=== PATIENT | female | born 1940 | race Caucasian/White ===

== ENCOUNTER 2024-11-24 08:34 | Inpatient (IN) | payer MEDICARE, OTHER, SELFPAY ==
[2024-11-24] VITALS (10 sets, daily range): BP systolic 112–175; BP diastolic 69–83; PULSE 61–86; RESP 12–20; TEMP 36.7–37.2; O2SAT 84–97; BMI 27.9; BMI 27.4
--- NOTE | ~2024-11-24 | CT_ITS ---
EXAMINATION: CT HEAD WITHOUT CONTRAST CLINICAL INFORMATION: Fall with head strike. COMPARISON: None available. TECHNIQUE: Contiguous axial imaging was performed from the skull base to vertex without intravenous administration of contrast. This CT examination was performed using dose optimization techniques as appropriate, variously including the following: *Automated exposure control *Adjustment of mA and/or kV according to patient size (this includes techniques or standardized protocols for targeted exams where dose is matched to indication/reason for exam; i.e. extremities or head) *Use of iterative reconstruction technique FINDINGS: There is no evidence of intracranial hemorrhage or extra-axial fluid collection. There is no mass effect, or edema. No CT evidence of acute territorial infarct. Ventricles, sulci, and cisterns are normal in size and configuration for patient age. No hydrocephalus. No midline shift. Negative hyperdense MCA sign. Negative insular ribbon sign. Patchy periventricular and deep white matter hypoattenuation is consistent with mild small vessel ischemic changes. Partial empty sella. Mild atheromatous calcification of the bilateral carotid siphons and V4 segments vertebral arteries bilaterally. Globes and orbital contents image normally. No extracranial soft tissue abnormalities. The paranasal sinuses, mastoid air cells, and tympanic cavities are normally aerated. No suspicious bony abnormalities. There is hyperostosis frontalis. There are no acute fractures evident. CT/CT head/brain wo IV con IMPRESSION: No acute intracranial abnormality. No fracture evident. Electronically signed by: Sven Alva MD 11/24/2024 09:21 AM EDT
--- NOTE | ~2024-11-24 | XR_ITS ---
CLINICAL HISTORY: S p L hip maurice --- Additional Notes or Special Instructions: Posterior precautions Radiograph of the pelvis, single view Comparison: CR/SR - XR HIP 1 VIEW LEFT WITH PELVIS - 11/24/24 10:11 EDT Findings: Interval left total hip arthroplasty. Intact hardware. Anatomic alignment. No fracture or dislocation. Yfhf-ws-ddrypijn degenerative change. Soft tissue swelling and foci of air overlying the left hip secondary to recent surgery. Impression: Interval left total hip arthroplasty. Intact hardware. This document has been electronically signed by: Loren Valdez MD on 11/25/2024 14:22:21
--- NOTE | ~2024-11-24 | CT_ITS ---
EXAMINATION: CT CERVICAL SPINE WITHOUT CONTRAST CLINICAL INFORMATION: Fall, head strike, neck pain COMPARISON: None available. TECHNIQUE: Spiral CT imaging of the cervical spine performed in axial plane without contrast. Multiplanar reformatted images were constructed from the axial data set. This CT examination was performed using dose optimization techniques as appropriate, variously including the following: *Automated exposure control *Adjustment of mA and/or kV according to patient size (this includes techniques or standardized protocols for targeted exams where dose is matched to indication/reason for exam; i.e. extremities or head) *Use of iterative reconstruction technique FINDINGS: CORONAL ALIGNMENT: -Normal. SAGITTAL ALIGNMENT: -Normal. No subluxation. C1-C2 AND CRANIOCERVICAL JUNCTION: -Intact and normally aligned. Moderate degenerative arthrosis in the anterior atlantoaxial joint. VERTEBRAL BODIES AND FACETS: -No fracture, compression deformity, or suspicious bone lesion. No traumatic subluxation. -Normal facet alignment. Mild to moderate multilevel facet arthrosis bilaterally. DISCS: -Moderate diffuse disc degeneration, most significant at C3-4. CENTRAL CANAL: -No evidence of high-grade central canal narrowing or large disc herniation allowing for modality limitations. There is at least moderate central canal stenosis at C4-5 secondary to a dorsal disc osteophyte. PREVERTEBRAL AND PARAVERTEBRAL SOFT TISSUES: -No prevertebral or paravertebral soft tissue swelling or edema. No abnormal fluid collection. -Moderate bilateral carotid bulb calcifications. -Global enlargement of the thyroid gland with a dominant focal right-sided nodule measuring 2.0 x 2.1 cm (series 12, image 258). LUNG APICES: -Clear bilaterally. No pneumothorax. CT/CT cervical spine wo IV con IMPRESSION: 1. There is no CT evidence of acute cervical spine fracture or injury. 2. Moderate multilevel cervical spondylosis. 3. Global thyroid enlargement with a dominant 2.1 cm right-sided nodule. Electronically signed by: Sven Alva MD 11/24/2024 09:29 AM EDT
--- NOTE | ~2024-11-24 | XR_ITS ---
EXAMINATION: XR HIP, LEFT CLINICAL INFORMATION: L hip pain after fall COMPARISON: None available. TECHNIQUE: AP pelvis and 2 views left hip. FINDINGS: There is a fracture through the neck of the femur with proximal migration of the femur. There are mild degenerative changes of both hip joints with small marginal osteophytes involving the femoral head and acetabulum. XR/XR hip LT w PEL1V IMPRESSION: Acute left femoral neck fracture with proximal migration of the femur Electronically signed by: Guzman Kinney MD 11/24/2024 10:34 AM EDT
--- NOTE | ~2024-11-24 | XR_ITS ---
EXAMINATION: XR CHEST CLINICAL INFORMATION: hip fx COMPARISON: None available. TECHNIQUE: AP view of the chest was obtained. FINDINGS: The cardiac, hilar, and mediastinal contours are normal. Aortic mural calcifications. The lungs are clear bilaterally. No pneumothorax or effusion. No focal osseous or soft tissue abnormality. XR/XR chest 1V IMPRESSION: No active pulmonary disease. Electronically signed by: Sven Alva MD 11/24/2024 10:31 AM EDT
--- NOTE | 2024-11-24 08:36 | ECG_ITS ---
Test Reason : FALL Blood Pressure : */* mmHG Vent. Rate : 70 BPM Atrial Rate : 70 BPM P-R Int : 200 ms QRS Dur : 76 ms QT Int : 406 ms P-R-T Axes : 2 27 33 degrees QTcB Int : 438 ms Sinus rhythm with Premature atrial complexes Inferior infarct , age undetermined Abnormal ECG No previous ECGs available Referred By: Ruma Loaiza Electronically Signed By: YVETTE GUIDO
--- NOTE | 2024-11-24 08:52 | ED.GENADULT ---
HPI - General Adult General Chief complaint: Fall Stated complaint: ?FALL,-LOC,LT HIP PAIN PER EMS Time Seen by Provider: 11/24/24 08:36 Source: patient, family (daughter), EMS, RN notes reviewed and old records reviewed Mode of arrival: EMS History of Present Illness ED Provider: Josse HPI narrative: Patient is an 84-year-old female with history of Parkinson's, memory loss, HTN, insomnia, ATFL, TKA left knee presenting to the emergency department with complaint of left hip and upper leg pain after an unwitnessed fall at her assisted living facility prior to arrival. Patient does not recall the events of the fall. She is not anticoagulated. Denies headache, neck or back pain. Does not remember if she was dizzy or lightheaded prior to the fall. MD complaint: left hip pain Related Data Home Medications ?Medication ?Instructions ?Recorded ?Confirmed carbidopa 25 mg-levodopa 100 mg 1 tab PO TID 11/24/24 11/24/24 tablet escitalopram oxalate 20 mg tablet 20 mg PO DAILY 11/24/24 11/24/24 [id number] 0.4 mg-calcium 162 1 tab PO DAILY 11/24/24 11/24/24 mg-iron 18 [id number] tablet pravastatin 20 mg tablet 20 mg PO BEDTIME 11/24/24 11/24/24 Allergies Allergy/AdvReac Type Severity Reaction Status Date / Time No Known Allergies Allergy Verified 11/24/24 08:52 Review of Systems Review of Systems: As per HPI Yes all other systems are reviewed and are negative Constitutional: Constitutional: Reports as per HPI [facility] Past Medical History Medical History (Updated 11/24/24 @ 11:35 by AMBER Barrera) HLD (hyperlipidemia) Parkinsons disease Social History Social History Unable to assess alcohol history related to: Unknown Patient Tobacco Use Status: Never used Tobacco Physical Exam ED Vital Signs: Vital Signs - 24 hr 11/24/24 08:48 11/24/24 09:35 11/24/24 09:55 Temperature 98.6 F Pulse Rate 86 71 Respiratory Rate 16 14 Blood Pressure 128/75 175/78 H Pulse Oximetry 97 94 84 L Oxygen Delivery Method Room Air Room Air Room Air Oxygen Flow Rate 11/24/24 09:56 11/24/24 10:49 Temperature Pulse Rate 63 Respiratory Rate 12 15 Blood Pressure 151/83 H Pulse Oximetry 93 95 Oxygen Delivery Method Nasal Cannula Room Air Oxygen Flow Rate 3 BMI result Body Mass Index 27.9 Vital signs have been reviewed and appear to be correct. Blood pressure normal. Heart rate normal. Respiratory rate normal. Temperature normal. Oxygen saturation normal. Const General: cooperative, healthy appearing and no acute distress Orientation/consciousness: oriented to person and oriented to place [facility] Head: Yes normocephalic and Yes atraumatic Ears: external ears normal General nose exam: Normal external nose present Face and sinus: Yes face symmetric Mouth: oropharynx normal and moist mucous membranes Throat: Yes uvula midline Eyes Pupils: Equal, round and reactive pupils present Neck Neck: Yes normal visual inspection and Yes supple Resp Effort & Inspection: normal respiratory effort and able to speak in complete sentences Auscultation: clear to auscultation bilaterally Cardio Rate: regular rate Rhythm: regular rhythm Heart sounds: S1 normal heart sound present and S2 normal heart sound present GI Palpation (GI): Soft to palpation and nontender Auscultation: normoactive bowel sounds General: Yes no CVA tenderness Back/Spine/Pelvis Back: no CVA tenderness Cervical Spine: collar present, No Cervical spine tenderness and No step off deformity Thoracic/Lumbar Spine: thoracic and lumbar spine normal to inspection, No thoracic spinal tenderness and No lumbar spinal tenderness Pelvis: no pain with anterior-posterior compression and no pain with lateral compression Skin General skin exam: elasticity normal and turgor normal Neuro General: oriented to person, oriented to place, moves all extremities, no focal motor deficits and CN's II-XI intact bilaterally Cranial nerves: Yes Equal, round and reactive pupils present Cognition (Neuro): normal cognition Extrem General: Yes full ROM, Yes no pedal edema and Yes no calf tenderness Right lower extremity: normal to inspection, full ROM and foot Details: vascular exam Details: dorsalis pedis pulse present, posterior tibial pulse present and normal capillary refill Left lower extremity: hip/thigh Details: tenderness Location: of the proximal upper leg Location: laterally, knee Details: normal to inspection; no tenderness and foot Details: vascular exam Details: dorsalis pedis pulse present, posterior tibial pulse present and normal capillary refill; abnormal to inspection (shortened, externally rotated) Psych Mental Status: mental status grossly normal Affect: normal affect Thought process: Normal thought process present Medications Administered Discontinued Medications Generic Name Dose Route Start Last Admin Trade Name Freq PRN Reason Stop Dose Admin Diazepam 2.5 mg 11/24/24 09:44 11/24/24 09:49 Diazepam 10 Mg/2 Ml Cartridge IVPUSH 11/24/24 09:45 2.5 mg STAT STA Administration Acetaminophen 1,000 mg in 100 mls @ 400 mls/hr 11/24/24 12:39 11/24/24 14:02 Ofirmev IV 11/24/24 12:53 Infused ONCE ONE Infusion Morphine Sulfate 4 mg 11/24/24 09:16 11/24/24 09:22 Morphine Sulfate 4 Mg/Ml Cartridge IVPUSH 11/24/24 09:17 4 mg ONCE ONE Administration Protocol Morphine Sulfate 2 mg 11/24/24 11:22 11/24/24 11:51 Morphine Sulfate 4 Mg/Ml Cartridge IVPUSH 2 mg Q4H PRN Administration Pain, Severe (Pain Scale 7-10) Protocol Ondansetron HCl 4 mg 11/24/24 09:16 11/24/24 09:22 Ondansetron Hcl 4 Mg/2 Ml Vial IVPUSH 11/24/24 09:17 4 mg ONCE ONE Administration Medical Decision Making Medical Decision Making MDM Narrative: Patient is an 84-year-old female with history of Parkinson's, memory loss, HTN, insomnia, ATFL, TKA left knee presenting to the emergency department with complaint of left hip and upper leg pain after an unwitnessed fall at her assisted living facility prior to arrival. On exam patient is awake, A+Ox3, VS WNL, afebrile, normal neurological exam without focal deficits, physical exam findings as above. Given reported symptoms and physical exam findings, initial differential includes but is not limited to left hip/femur contusion versus fracture, ICH, skull or cervical vertebral fracture subluxation, cardiac arrhythmia, electrolyte abnormality, UTI, viral illness. Labs notable for leukocytosis with left shift, elevated T bili, no prior for comparison. Denies abdominal pain. X-ray left hip notable for femoral neck fracture. CT head and c-spine notable for no evidence of ICH, skull or cervical vertebral fracture or subluxation. My interpretation is in agreement with the radiologist's interpretation. Awaiting urine specimen, straight cath ordered. Viral serology negative. Patient medicated for pain with morphine, reports little relief. Will add valium. Case discussed with kam Monroe, who advised NPO after midnight, would like type and screen. Case discussed with AMBER Ward hospitalist who accepts admission to medicine. Differential Diagnosis Differential Diagnoses: The differential diagnosis associated with the presentation includes as per [facility] Admission/Observation Consideration of admission/observation: Escalation of care including admission/observation considered Consult Healthcare Provider Management of the patient was discussed with: Hospitalist (AMBER Maynard) and Battery Repairer (kam Monroe) Lab Data [facility] Lab Attestation statement: I reviewed the patient's lab results. as per [facility] 11/24/24 09:11 11/24/24 09:11 Labs: Lab Results 11/24/24 11/24/24 11/24/24 Range/Units 09:11 09:15 10:48 WBC 20.2 H (4.8-10.8) X10*3/uL RBC 4.46 (4.20-5.50) X10*6/uL Hgb 14.0 (12.0-16.0) g/dl Hct 39.7 (37.0-47.0) % MCV 89.0 (80.0-98.0) fL MCH 31.4 (27.0-33.0) pg MCHC 35.3 H (31.0-35.0) g/dl RDW 13.0 (11.0-16.0) % Plt Count 198 (160-400) X10*3/uL MPV 9.4 (9.4-12.3) fL Immature Gran % (Auto) 0.8 H (0.0-0.4) % Neut % (Auto) 91.1 H (45-73) % Lymph % (Auto) 3.0 L (20-40) % Greenlee % (Auto) 5.0 (2-11) % Eos % (Auto) 0.0 (0-4) % Baso % (Auto) 0.1 (0-2) % Lymph # (Auto) 0.6 L (1.2-4.9) X10*3/uL Greenlee # (Auto) 1.0 (0.1-1.2) X10*3/uL Eos # (Auto) 0.0 (0.0-0.4) X10*3/uL Baso # (Auto) 0.0 (0.0-0.2) X10*3/uL Abs Immat Gran (auto) 0.17 H (0.00-0.03) X10*3/uL Absolute Neuts (auto) 18.4 H (2.0-8.3) x10*3/uL Absolute Nucleated RBC 0.000 (0.0-0.012) X10*3/uL Nucleated RBC % (auto) 0.0 (0.0-0.2) /100WBC Smear Tech's Comments VERIFIED Sodium 139 (135-145) mmol/L Potassium 3.5 (3.3-5.1) mmol/L Chloride 106 (96-108) mmol/L Carbon Dioxide 25 (22-29) mmol/L Anion Gap 12 (12-20) BUN 21 H (9-16) mg/dL Creatinine 0.79 (0.5-1.4) mg/dL Estim Creat Clear Calc 54.0 Estimated GFR > 60 Random Glucose 120 H (60-115) mg/dL Calcium 9.2 (8.4-10.2) mg/dL Total Bilirubin 1.7 H (0.0-1.0) mg/dL AST 33 H (5-31) U/L ALT 20 (0-31) U/L Alkaline Phosphatase 58 (39-117) U/L Total Protein 6.4 L (6.5-8.0) g/dL Albumin 4.3 (3.5-5.0) g/dL Urine Color Dark Yellow Urine Appearance Clear Urine pH 5.5 (5.0-9.0) Ur Specific [place] >= 1.030 H (1.005-1.025) Urine Protein 30 (1+) H (Neg-Trace) mg/dL Urine Glucose (UA) Negative (Negative) mg/dL Urine Ketones 40 (Negative) mg/dL Urine Blood Trace H (Negative) Urine Nitrite Negative (Negative) Ur Leukocyte Esterase Trace H (Negative) Urine RBC 3-5 H (0-2) /HPF Urine WBC 0-5 (0-5) /HPF Ur Squamous Epith Cells 0-2 (0-2) /HPF Urine Bacteria None Seen (None Seen) Hyaline Casts 11-20 (0-2) /LPF Granular Casts Present COVID-19 (SUNITA) Negative (Negative) COVID-19 Clin Com See Note Influenza Type A (KENDRA) Negative (Negative) Influenza Type B (KENDRA) Negative (Negative) Influenza A & B Note See Note Independent Interpretation I performed an independent interpretation of an: EKG (sinus rhythm with PACs, rate 70bpm, normal PA interval and QTc, T wave inversion leads V1-V3), Plain X-Ray and CT Scan Interpretation: X-ray left hip notable for femoral neck fracture. CT head and c-spine notable for no evidence of ICH, skull or cervical vertebral fracture or subluxation. Radiology Impression Discussion of test interpretation with radiology: I have reviewed the radiologist's reading. Radiologist Impression: XR/XR hip LT w PEL1V IMPRESSION: Acute left femoral neck fracture with proximal migration of the femur CT/CT head/brain wo IV con IMPRESSION: No acute intracranial abnormality. No fracture evident. CT/CT cervical spine wo IV con IMPRESSION: 1. There is no CT evidence of acute cervical spine fracture or injury. 2. Moderate multilevel cervical spondylosis. 3. Global thyroid enlargement with a dominant 2.1 cm right-sided nodule. External Record Review External record reviewed: Inpatient record, Office record and Outpatient record Critical Care Time Critical Care Time Critical Care Time: Yes Total Critical Care Time: 37 Attestation: I have personally provided critical care time exclusive of time spent on separately billable procedures. Time includes review of lab data, radiology results, discussion with consultants, and monitoring for potential decompensation. Intervention performed as documented. Discharge Plan Discharge Clinical Impression: Closed fracture of neck of left femur Qualifiers: Encounter type: initial encounter Qualified Code(s): S72.002A - Fracture of unspecified part of neck of left femur, initial encounter for closed fracture Patient Disposition: Admitted As Inpatient Interventions: Admission Worksheet (ED) Last Done: 11/24/24 13:55 Discharge Date/Time: 11/24/24 15:12
[2024-11-24 09:19] LABS: Hematocrit 39.7 % (37.0-47.0); Hemoglobin 14.0 g/dl (12.0-16.0); Imm Gran Abs Auto 0.17 X10*3/uL (0.00-0.03); Imm Gran Pct Auto 0.8 % (0.0-0.4); Lymphocytes Absolute Auto 0.6 X10*3/uL (1.2-4.9); MANUAL DIFF FLAG SCAN; Mean Corpuscular HGB Conc 35.3 g/dl (31.0-35.0); Mean Corpuscular Hemoglobin 31.4 pg (27.0-33.0); Mean Corpuscular Volume 89.0 fL (80.0-98.0); NRBC Abs Auto 0.000 X10*3/uL (0.0-0.012); NRBC Pct Auto 0.0 /100WBC (0.0-0.2); Platelet Count 198 X10*3/uL (160-400); Red Blood Count 4.46 X10*6/uL (4.20-5.50); SCAN SMEAR FLAG 1; White Blood Count 20.2 X10*3/uL (4.8-10.8)
[2024-11-24 09:37] LABS: Alanine Aminotransferase 20 U/L (0-31); Albumin Level 4.3 g/dL (3.5-5.0); Alkaline Phosphatase 58 U/L (39-117); Anion Gap 12 (12-20); Aspartate Amino Transferase 33 U/L (5-31); Blood Urea Nitrogen 21 mg/dL (9-16); Calcium 9.2 mg/dL (8.4-10.2); Carbon Dioxide 25 mmol/L (22-29); Chloride 106 mmol/L (96-108); Creatinine Clr Calc Pharmacy 54.0; Estimated Glomerular Filt Rate > 60; Potassium 3.5 mmol/L (3.3-5.1); Sodium 139 mmol/L (135-145); Total Protein 6.4 g/dL (6.5-8.0)
--- NOTE | 2024-11-24 09:37 | PC.NURSE ---
Addendum entered by Humaira Freed RN 11/24/24 09:43: C-Collar removed by provider. Original Note: Pt [facility]NM[facility] from [facility], reported to have fallen in shower. Unknown if head strike, pt is alert/oriented but forgetful and poor historian. Pt states she suffers short term memory loss at baseline and ? Parkinson/dementia per EMS reports. C-Collar in placer per EMS, CT scans pending. #18 to L AC, labs collected and sent. Pt reports 11/15 pain to LLE, medicated per MAY. Pt pending xrays..
--- OUTSIDE RECORDS SUMMARY | 2024-11-24 09:44 | XMS_ITS | Clinical Summary ---
Author Organization [facility] Address [address] [place] [id number] Care Team Providers Care Remittance Clerk Name Role Phone Pancho Richards MD Primary Care Provider [phone] Allergies No known active allergies Medications pravastatin (PRAVACHOL) 20 MG tablet TAKE 1 TABLET BY MOUTH AT BEDTIME FOR 90 DAYS 4 Active escitalopram (LEXAPRO) 20 MG tablet Take 1 tablet (20 mg total) by mouth daily. 4 Active carbidopa-levodopa (SINEMET) 25-100 MG per tabletIndications:P arkinson's disease without dyskinesia or fluctuating manifestations (HCC) Take 1 tablet by mouth 3 (three) times a day. 270 tablet 3 5 Active Active Problems Problem Noted Date Diagnosed Date Memory loss 07/19/2023 07/19/2023 High blood pressure 04/08/2023 07/19/2023 Cervical radiculopathy 03/03/2022 4 Parkinson disease 03/08/2017 07/19/2023 Overview (07/19/2023): Diagnosed 2017 Encounters Date Type Department Care Team Description 09/26/2024 Scanned Document [facility] [place] [address] [place] [id number] Donald Li MD 08/28/2024 Refill [facility] [address] [place] [address] Donald Li MD Parkinson's disease without dyskinesia or fluctuating manifestations (HCC) (Primary Dx) from Last 3 Months Family History Medical History Relation Name Comments Diabetes Brother Heart attack Father Jj Coronel Heart disease Father Jj Coronel Parkinsonism Maternal Grandmother Madhuri Dos Santos Heart attack Mother Jodi Coronel Heart disease Mother Jodi Coronel Dementia Paternal Aunt 1 Gianna Dillard Dementia Paternal Aunt 2 Amaris Coronel Breast cancer Sister Edel Walker Anxiety disorder Son Guilherme Nina since alex ge years, currently 49 Relation Name Status Comments Brother Father Jj Coronel Maternal Grandmother Madhuri Dos Santos Mother Jodi Coronel Paternal Aunt 1 Gianna Dillard Paternal Aunt 2 Amaris Coronel Sister Edel Ugaldeven Son Guilherme Nina Social History Tobacco Use Types Packs/Day Years Used Date Smoking Tobacco: Never Smokeless Tobacco: Never Tobacco Cessation:Counseling Given: Not Answered Comments:Former smoker (stopped in 1984) Alcohol Use Standard Drinks/Week Comments Not Currently 1 (1 standard drink = 0.6 oz pur e alcohol) Comments Unknown Sex and Gender Information Value Date Recorded Sex Assigned at Female 07/18/2023 7:08 PM EDT Legal Sex Female 9:54 AM EDT Gender Identity Female 07/18/2023 7:08 PM EDT Sexual Orientation Heterosexual (straight) 07/17 7:08 PM EDT Last Filed Vital Signs Vital Sign Reading Time Taken Comments Blood Pressure - - Pulse - - Temperature - - Respiratory Rate - - Oxygen Saturation 96% 11/29/2023 12:47 PM EDT Inhaled Oxygen Concentration - - Weight 73.2 kg (161 lb 6.4 oz) 11/29/2023 12:47 PM EDT Height 167.6 cm (5' 6 ) 11/29/2023 12:47 PM EDT Body Mass Index 26.05 11/29/2023 12:47 PM EDT Plan of Treatment Upcoming Encounters Date Type Department Care Team (Late st Contact Info) Description 01/15/2025 1:00 PM EST Office Visit [facility] [address] [address] Donald Li MD [address] [facility] [address] [place] [address] Health Maintenance Due Date Last Done Comments Advance Care Planning 1942 DTaP/Tdap/Td Vaccines (1 - Tdap) 1961 Pneumococcal Vaccines 50+ (1 of 1 - PCV) 1992 Zoster (Shingles) Vaccine (1 of 2) 1992 DXA Bone Density (Females,Ages 65 and older) 06/07/2007 RSV Vaccine 60 years and older and Patients (1 - 1-dose 75+ series) 2017 Influenza Vaccine 10/06/2024 12/29/2022, , 11/23/2019, Additional history exists COVID-19 Vaccine ( season) 2024 07/14/2021, 12/20/2020, 04/27/2020, Additional history exists Hepatitis B Vaccines Aged Out No long er eligible based on patient's age to complete this topic Insurance MEDICARE PART A & B [facility] Care Teams Remittance Clerk Relationship Specialty Start Date End Date Pancho Richards MD [address] [place] [address] PCP - General 07/01/23
--- OUTSIDE RECORDS SUMMARY | 2024-11-24 09:44 | XMS_ITS ---
Author Name [facility] Organization Unknown History of Medication Use Medication Directions Dispensed Refills Start Date End Date Stat us carbidopa-levodopa (SINEMET) 25-100 MG per tablet Take 1 tablet by mouth 3 (three) times a day. 05/15/2023 active escitalopram (LEXAPRO) 20 MG tablet Take 1 tablet (20 mg total) by mouth daily. 05/07/2023 active Problems Problem Status Onset Date Problem Type Date of Resoluti on Source Cervical radiculopathy active 2022-03-03 [facility] Memory loss active 2023-07-19 [facility] High blood pressure active 2023-04-08 [facility] Parkinson disease active 2017-03-08 ProblemAct [facility] Encounters Encounter Type Encounter Reason Primary Diagnosis Location Date Ambulatory Parkinson's disease without dyskinesia, without mention of fluctuations Parkinson's disease without dyskinesia, without mention of fluctuations [facility] 11/29/2023 Ambulatory Parkinson's disease without dyskinesia, without mention of fluctuations Parkinson's disease without dyskinesia, without mention of fluctuations [facility] 07/19/2023 Care Team Organization Name Specialty Phone Email Start Date End Da te [facility] 07/19/20232024 [facility] 07/01/2023
--- OUTSIDE RECORDS SUMMARY | 2024-11-24 09:44 | XMS_ITS | Encounter Summary ---
Author Organization [facility] Address [address] [place] [address] Care Team Providers Care Sales Administration Specialist Name Role Phone Pancho Richards Primary Care Provider [phone] Reason for Visit * Reason Onset Date Comments Confirmation 06/11/2021 Encounter Details Date Type Department Care Team (Late st Contact Info) Description 06/11/2021 Telephone [facility] Central Scheduling Department [address] [place] [id number] Telephone Intake, Staff Confirmation Social History Tobacco Use Types Packs/Day Years Used Date Smoking Tobacco: Former Smokeless Tobacco: Former Alcohol Use Standard Drinks/Week Comments Yes 1 (1 standard drink = 0.6 oz pur e alcohol) Comments Unknown Sex and Gender Information Value Date Recorded Sex Assigned at Not on file Legal Sex Female 10:38 AM EST Gender Identity Not on file Sexual Orientation Not on file documented as of this encounter Miscellaneous Notes * Telephone Encounter - Danelle Pardo - 06/11/2021 2:58 PM EDT Neurology pt confirming 06/30 and 09/[address] Ally Mccarty documented in this encounter Plan of Treatment Not on file documented as of this encounter Visit Diagnoses Not on filedocumented in this encounter Care Teams Sales Administration Specialist Relationship Specialty Start Date End Date Pancho Richards [facility] [facility], [place] [address] PCP - General Internal Medicine 04/19/19 documented as of this encounter
--- OUTSIDE RECORDS SUMMARY | 2024-11-24 09:44 | XMS_ITS | Encounter Summary ---
Author Organization [facility] Address [address] [place] [address] Care Team Providers Care Admiralty Lawyer Name Role Phone Pancho Richards MD Primary Care Provider [phone] Encounter Details Date Type Department Care Team (Late st Contact Info) Description 09/26/2024 Scanned Document [facility] [place] [address] [place] [phone] Donald Li MD [address] [address] Social History Tobacco Use Types Packs/Day Years Used Date Smoking Tobacco: Never Smokeless Tobacco: Never Comments:Former smoker (stop ped in 1984) Alcohol Use Standard Drinks/Week Comments Not Currently 1 (1 standard drink = 0.6 oz pur e alcohol) Comments Unknown Sex and Gender Information Value Date Recorded Sex Assigned at Female 07/18/2023 7:08 PM EDT Legal Sex Female 9:54 AM EDT Gender Identity Female 07/18/2023 7:08 PM EDT Sexual Orientation Heterosexual (straight) 07/17 7:08 PM EDT documented as of this encounter Plan of Treatment Upcoming Encounters Date Type Department Care Team (Late st Contact Info) Description 01/15/2025 1:00 PM EST Office Visit [facility] [place] [address] [place] [phone] Donald Li MD [address] [address] documented as of this encounter Visit Diagnoses Not on filedocumented in this encounter Care Teams Admiralty Lawyer Relationship Specialty Start Date End Date Pancho Richards MD [address] [place] [address] PCP - General 07/01/23 documented as of this encounter
--- OUTSIDE RECORDS SUMMARY | 2024-11-24 09:44 | XMS_ITS | Clinical Summary ---
Author Organization [facility] Address [address] [place] [address] Care Team Providers Care Instrument And Electrical Technician Name Role Phone Pancho Richards Primary Care Provider [phone] Allergies No known active allergies Medications pravastatin (PRAVACHOL) 20 mg tablet 08/06/2019 Active sertraline (ZOLOFT) 25 mg tablet Take 25 mg by mouth daily. 12/24/2019 Active amoxicillin (AMOXIL) 500 mg capsule TAKE 4 CAPSULES BY MOUTH 1 HR PRIOR DENTAL APPT 12/12/2019 Active carbidopa-levod opa (SINEMET) 25-100 mg per tablet TAKE 2 TABLETS BY MOUTH 3 TIMES A DAY 540 tablet 1 08/26/2022 Active Active Problems Problem Noted Date Diagnosed Date Parkinson disease 08/07/2019 Overview (08/07/2019): Diagnosed 2017 Social History Tobacco Use Types Packs/Day Years Used Date Smoking Tobacco: Former Smokeless Tobacco: Former Alcohol Use Standard Drinks/Week Comments Yes 1 (1 standard drink = 0.6 oz pur e alcohol) Comments Unknown Sex and Gender Information Value Date Recorded Sex Assigned at Not on file Legal Sex Female 10:38 AM EST Gender Identity Not on file Sexual Orientation Not on file Last Filed Vital Signs Vital Sign Reading Time Taken Comments Blood Pressure 135/82 09/29/2021 9:20 AM EDT Pulse 79 09/29/2021 9:20 AM EDT Temperature 36.3 C (97.4 F) 09/29/2021 9:17 AM EDT Respiratory Rate 16 09/29/2021 9:17 AM EDT Oxygen Saturation - - Inhaled Oxygen Concentration - - Weight 81.2 kg (179 lb) 12/09/2020 9:07 AM EDT Height 167.6 cm (5' 6 ) 09/29/2021 9:17 AM EDT Body Mass Index 28.89 12/09/2020 9:07 AM EDT Plan of Treatment Health Maintenance Due Date Last Done Comments Osteoporosis Screening 1992 RSV Vaccine (60+ years old and patients) (1 - 1-dose 75+ series) 2017 DTaP,Tdap,and Td Vaccines (2 - Td or Tdap) 03/07/2023 03/07/2013, 12/06/2012, 11/15/2006, Additional history exists Alcohol/Substance Use Screening 03/08/2024 Health Care Proxy Review 03/08/2024 COVID-19 Vaccine ( season) 2024 07/14/2021, 12/20/2020, 04/27/2020, Additional history exists Influenza Vaccine (#1) 2024 , 12/11/2020, 11/23/2019, Additional history exists Pneumococcal Vaccine: 50+ Years Completed 12/24/2015, 07/02/2011 Zoster Vaccines Completed 03/21/2018, 01/06, 10/20/2012 Hepatitis B Vaccines Aged Out No long er eligible based on patient's age to complete this topic Insurance [facility] [employer] [id number] MEDICARE Care Teams Instrument And Electrical Technician Relationship Specialty Start Date End Date Pancho Richards [address] [place] [address], [place] [address] PCP - General Internal Medicine 04/19/19
--- OUTSIDE RECORDS SUMMARY | 2024-11-24 09:44 | XMS_ITS | Encounter Summary ---
Author Organization [facility] Address [address] [place] [address] Care Team Providers Care Patent Searcher Name Role Phone Pancho Richards MD Primary Care Provider [phone] Encounter Details Date Type Department Care Team (Late Contact Info) Description 12/20/2023 Scanned Document [facility] Neuropsychology, Scan Social History Tobacco Use Types Packs/Day Years [...] Encounters Date Type Department Care Team (Late Contact Info) Description 01/15/2025 1:00 PM EST Office Visit [facility] [place] [address] [place] [id number] Donald Li MD [address] [id number] documented as of this encounter Visit Diagnoses Not on filedocumented in this encounter Care Teams Patent Searcher Relationship Specialty Start Date End Date Pancho Richards MD [address] [place] [address] PCP - General 07/01/23 documented as of this encounter
[2024-11-24] MEDS: diazePAM 10 MG/2 ML CARTRIDGE 2.5 MG IVPUSH (09:49)
[2024-11-24 09:54] LABS: COVID-19 Test Negative (Negative); IDNOW Serial# 55D5AD1C; IDNOW Serial# 6674DD1D; Influenza B2 Negative (Negative)
--- NOTE | 2024-11-24 09:56 | PC.NURSE ---
Pt medicated per MAR, reports pain has improved. O2 sat noted to be 84% on room air. 3L O2 applied via NC, saturation improved to 97%. Pt resting quietly with eyes closed and resp even and unlabored. Pt now in xray.
--- NOTE | 2024-11-24 10:56 | PC.NURSE ---
U/A obtained via straight cath, pt tolerated well. Approx 150cc of CYU noted for output
[2024-11-24 11:00] LABS: Appearance Urine Clear; Glucose Urine UA Negative (Negative); PH 5.5 (5.0-9.0); Specific Gravity - Urine >= 1.030 (1.005-1.025); UMIC TRIGGER UACC YES
--- NOTE | 2024-11-24 11:28 | P.HPHOSP_ITS ---
History of Present Illness Date of Service: 11/24/24 Attending physician on admission: Jing Hernandez Chief Complaint: left leg pain, fall This is an 84-year-old female with a history of Parkinson's disease was brought to the emergency department after a fall. Patient has a history of memory impairment and can not remember exactly why she fell. She was brought to the emergency department and reported left leg pain. Imaging was positive for left femoral neck fracture. Lab work was significant for leukocytosis of 20,000, chest x-ray negative for acute infection. Urinalysis pending at the time of admission. Patient denies any urinary symptoms. She denies any chest pain, shortness of breath, palpitations or dizziness. She will be admitted for further management of left femoral neck fracture Review of Systems 2 Review of Systems: Yes all other systems are reviewed and are negative Constitutional: Constitutional: Denies chills and Denies fever(s) Cardiovascular: Cardiovascular: Denies chest pain and Denies palpitations Gastrointestinal: Gastrointestinal: Denies diarrhea and Denies vomiting Endocrine: Endocrine: Denies palpitations [facility] Medical History (Updated 11/24/24 @ 11:35 by AMBER Barrera) HLD (hyperlipidemia) Parkinsons disease Social History Unable to assess alcohol history related to: Unknown Patient Tobacco Use Status: Never used Tobacco Advance Directives: No Advance Directives Information Provided: Yes Meds Allergies Allergy/AdvReac Type Severity Reaction Status Date / Time No Known Allergies Allergy Verified 11/24/24 08:52 Home Medications ?Medication ?Instructions ?Recorded ?Confirmed ?Last Taken ?Type carbidopa 25 mg-levodopa 100 mg 1 tab PO TID 11/24/24 11/24/24 11/23/24 History tablet escitalopram oxalate 20 mg tablet 20 mg PO DAILY 11/2411/24/24 11/23/24 History escitalopram oxalate 20 mg tablet 20 mg PO DAILY 11/2411/24/24 11/23/24 History utbkzknr-mso-ZH 0.4 mg-calcium 162 1 tab PO DAILY 11/0611/24/24 11/23/24 History mg-iron 18 zd-wxmciod-sjpmol tablet Physical Exam 2 Vital Signs and Narrative: Vital Signs: Last Vital Signs Temp 98.6 F 11/24/24 08:48 Pulse 63 11/24/24 10:49 Resp 15 11/24/24 10:49 BP 151/83 H 11/24/24 10:49 Pulse Ox 95 11/24/24 10:49 O2 Del Method Room Air 11/24/24 10:49 O2 Flow Rate 3 11/24/24 09:56 BMI result Body Mass Index 27.9 Const: General: cooperative, comfortable, alert and awake Nutritional Appearance: average body habitus Orientation/consciousness: oriented to person and oriented to place Resp: Effort & Inspection: normal respiratory effort, able to speak in complete sentences, no respiratory distress and no use of accessory muscles Cardio: Rate: regular rate GI: Inspection: No distended Palpation (GI): Soft to palpation Neuro: General: oriented to person, oriented to place, moves all extremities and CN's II-XI intact bilaterally Extrem: General: No pedal edema Results Labs 11/24/24 09:11 11/24/24 09:11 Labs: Laboratory Results - last 24 hr 11/24/24 11/24/24 11/24/24 09:11 09:15 10:48 MCV 89.0 MCH 31.4 MCHC 35.3 H RDW 13.0 Plt Count 198 MPV 9.4 Immature Gran % (Auto) 0.8 H Neut % (Auto) 91.1 H Lymph % (Auto) 3.0 L [place] % (Auto) 5.0 Eos % (Auto) 0.0 Baso % (Auto) 0.1 Lymph # (Auto) 0.6 L [place] # (Auto) 1.0 Eos # (Auto) 0.0 Baso # (Auto) 0.0 Abs Immat Gran (auto) 0.17 H Absolute Neuts (auto) 18.4 H Absolute Nucleated RBC 0.000 Nucleated RBC % (auto) 0.0 Smear Tech's Comments VERIFIED Anion Gap 12 Estim Creat Clear Calc 54.0 Estimated GFR > 60 Random Glucose 120 H Calcium 9.2 Total Bilirubin 1.7 H AST 33 H ALT 20 Alkaline Phosphatase 58 Total Protein 6.4 L Albumin 4.3 Urine Color Dark Yellow Urine Appearance Clear Urine pH 5.5 Ur Specific [place] >= 1.030 H Urine Protein 30 (1+) H Urine Glucose (UA) Negative Urine Ketones 40 Urine Blood Trace H Urine Nitrite Negative Ur Leukocyte Esterase Trace H Urine RBC 3-5 H Urine WBC 0-5 Ur Squamous Epith Cells 0-2 Urine Bacteria None Seen Hyaline Casts 11-20 Granular Casts Present COVID-19 (SUNITA) Negative COVID-19 Clin Com See Note Influenza Type A (KENDRA) Negative Influenza Type B (KENDRA) Negative Influenza A & B Note See Note Imaging Radiologist's Impressions: Impressions Cervical Spine CT 11/24/24 08:53 IMPRESSION: 1. There is no CT evidence of acute cervical spine fracture or injury. 2. Moderate multilevel cervical spondylosis. 3. Global thyroid enlargement with a dominant 2.1 cm right-sided nodule. Electronically signed by: Sven Alva MD 11/24/2024 09:29 AM EDT RP Head CT 11/24/24 08:53 IMPRESSION: No acute intracranial abnormality. No fracture evident. Electronically signed by: Sven Alva MD 11/24/2024 09:21 AM EDT RP Hip/Pelvis X-Ray 11/24/24 10:11 IMPRESSION: Acute left femoral neck fracture with proximal migration of the femur Electronically signed by: Guzman Kinney MD 11/24/2024 10:34 AM EDT RP Chest X-Ray 11/24/24 10:19 IMPRESSION: No active pulmonary disease. Electronically signed by: Sven Alva MD 11/24/2024 10:31 AM EDT RP Assessment and Plan (1) Closed fracture of neck of left femur: Qualifiers: Encounter type: initial encounter Qualified Code(s): S72.002A - Fracture of unspecified part of neck of left femur, initial encounter for closed fracture Status: Acute Plan This is an 84-year-old female with a history of Parkinson's disease, memory impairment, hypertension no longer on medication, hyperlipidemia brought into the emergency department after a fall found to have left femoral neck fracture Left femoral neck fracture Consult to Orthopedic team for definitive management No history of cardiopulmonary disease. RCRI - low risk of major cardiac event NSQIP risk: NPO at midnight pain management bowel regimen to prevent constipation check troponin, tsh leukocytosis wbc count 20.2 cxr, UA negative; no obvious source of infection likely reactive from fall trend cbc elevated bilirubin no abdominal pain parkinson's dz continue sinemet when med rec complete HTN no longer on bp meds reportedly stopped to prevent hypotension in the setting of parkinsons with what sounds like possible autonomic dysfunction Mood continue SSRI dvt ppx - mechanical devices due to planned procedure Patient will likely require 2 midnight stay in the hospital for management of left femoral neck fracture requiring surgical intervention, pain management Quality Stroke Does the patient have a stroke diagnosis?: No VTE Prior VTE?: No VTE Risk Level:: Medical - moderate - high VTE Device Contraindication: N/A - Device Ordered VTE Drug Contraindication: Treatment Not Indicated
--- NOTE | 2024-11-24 12:28 | HO.NURTONUR ---
Addendum entered by Humaira Freed RN 11/24/24 14:01: Pt given IV APAP x 1, reports improvment of pain. Addendum entered by Humaira Freed RN 11/24/24 13:04: Pt now regular diet, plans to be NPO after midnight for surgery at 730 jojo morning. Original Note: Pt is a 84yo female full code with NKA who was BIBA from [facility] after falling in shower. Unsure of head strike, pt denies LOC. LLE shortening noted and pt reports 10/10 pain. XRay shows left femoral neck fx, CT head and spine negative. Ortho consulted, plans for surgery tomorrow. PMH- dementia and parkinsons Pt is A/O x 2-3. Forgetful at times, easily redirectable. #18 to LAC Pt given morphine IV for pain, pt reprorts inadequate pain relief and PA notified. Currently NPO Continent of bowel and bladder.
--- NOTE | 2024-11-24 12:28 | PHA.MEDREC ---
Pharmacy Consult ? Medication Reconciliation Pharmacy has completed the medication reconciliation. Spoke with pt sister at bedside to confirm medications, these match claims.
--- NOTE | 2024-11-24 12:59 | PM.CNOR ---
History of Present Illness HPI Consult date: 11/24/24 Chief complaint: left femoral neck fracture Narrative: Patient is an 84-year-old female with past medical history significant for memory loss, Parkinson's, hypertension who was admitted to the hospital after a fall and left femoral neck fracture Patient is unable to give a detailed history about the nature of her fall, is only able to report that she did fall this morning Patient is resting in bed, does report significant pain in the left hip Denies any history of cigarette smoking, no cancer history, no history of blood clots No other acute complaints or concerns at this time Review of Systems Review of Systems: Yes all other systems are reviewed and are negative [facility] Past Medical History Medical History (Updated 11/24/24 @ 11:35 by AMBER Barrera) HLD (hyperlipidemia) Parkinsons disease Social History Social History Unable to assess alcohol history related to: Unknown Patient Tobacco Use Status: Never used Tobacco Advance Directives: No Advance Directives Information Provided: Yes Meds Allergies Allergy/AdvReac Type Severity Reaction Status Date / Time No Known Allergies Allergy Verified 11/24/24 08:52 Active Medications: Current Medications Acetaminophen (Acetaminophen 325 Mg Tablet) 650 mg PO Q6H PRN PRN Reason: Pain, Mild 1-3,fever,headache Calcium Carbonate (Calcium Carbonate 750 Mg Tab.Chew) 750 mg PO Q4H PRN PRN Reason: Heartburn Carbidopa/Levodopa (Carbidopa/Levodopa 25/100 Tablet) 1 tab PO TID [facility] Docusate Sodium (Docusate Sodium 100 Mg Capsule) 100 mg PO BID [facility] Escitalopram Oxalate (Escitalopram Oxalate 20 Mg Tablet) 20 mg PO DAILY [facility] Magnesium Hydroxide (Milk Of Magnesia 30 Ml Oral.Susp) 30 ml PO DAILY PRN PRN Reason: Constipation Melatonin (Melatonin 3 Mg Tablet) 6 mg PO BEDTIME PRN PRN Reason: Insomnia Morphine Sulfate (Morphine Sulfate 4 Mg/Ml Cartridge) 4 mg IVPUSH Q4H PRN; Protocol PRN Reason: Pain, Severe (Pain Scale 7-10) Polyethylene Glycol (Polyethylene Glycol 3350 17 Gm Powd.Pack) 17 gm PO DAILY PRN PRN Reason: Constipation Sodium Chloride (0.9 % Sodium Chloride Flush 3 Ml Syringe) 3 ml IVFLUSH QSHIFT [facility] Home Medications ?Medication ?Instructions ?Recorded ?Confirmed ?Last Taken ?Type carbidopa 25 mg-levodopa 100 mg 1 tab PO TID 11/24/24 11/24/24 11/23/24 History tablet escitalopram oxalate 20 mg tablet 20 mg PO DAILY 11/24/24 11/24/24 11/23/24 History gwpymkfp-bxi-UH 0.4 mg-calcium 162 1 tab PO DAILY 11/24/24 11/24/24 11/23/24 History mg-iron 18 ba-uamxpkw-yjxfeq tablet pravastatin 20 mg tablet 20 mg PO BEDTIME 11/24/24 11/24/24 11/23/24 History Physical Exam Vital Signs: Vital Signs: Last Vital Signs Temp 98.6 F 11/24/24 08:48 Pulse 63 11/24/24 10:49 Resp 15 11/24/24 10:49 BP 151/83 H 11/24/24 10:49 Pulse Ox 95 11/24/24 10:49 O2 Del Method Room Air 11/24/24 10:49 O2 Flow Rate 3 11/24/24 09:56 BMI result Body Mass Index 27.9 Extrem: Other: There is noted to be slight shortening and external rotation of the left lower extremity on inspection No evidence of surrounding erythema, ecchymosis No evidence of infection Patient is able to flex and extend the digits of the left foot without difficulty Compartments soft, nontender Distal sensation intact Capillary refill brisk Results Labs 11/24/24 09:11 11/24/24 09:11 Labs: Abnormal lab results 11/24/24 11/24/24 Range/Units 09:11 10:48 WBC 20.2 H (4.8-10.8) X10*3/uL MCHC 35.3 H (31.0-35.0) g/dl Immature Gran % (Auto) 0.8 H (0.0-0.4) % Neut % (Auto) 91.1 H (45-73) % Lymph % (Auto) 3.0 L (20-40) % Lymph # (Auto) 0.6 L (1.2-4.9) X10*3/uL Abs Immat Gran (auto) 0.17 H (0.00-0.03) X10*3/uL Absolute Neuts (auto) 18.4 H (2.0-8.3) x10*3/uL BUN 21 H (9-16) mg/dL Random Glucose 120 H (60-115) mg/dL Total Bilirubin 1.7 H (0.0-1.0) mg/dL AST 33 H (5-31) U/L Total Protein 6.4 L (6.5-8.0) g/dL Ur Specific [place] >= 1.030 H (1.005-1.025) Urine Protein 30 (1+) H (Neg-Trace) mg/dL Urine Blood Trace H (Negative) Ur Leukocyte Esterase Trace H (Negative) Urine RBC 3-5 H (0-2) /HPF H & H 11/24/24 Range/Units 09:11 Hgb 14.0 (12.0-16.0) g/dl Hct 39.7 (37.0-47.0) % All other labs normal. Diagnostic results Hip x-ray: report reviewed and image reviewed Assessment and Plan (1) Closed fracture of neck of left femur: Qualifiers: Encounter type: initial encounter Qualified Code(s): S72.002A - Fracture of unspecified part of neck of left femur, initial encounter for closed fracture Status: Acute Plan 1. Left femoral neck fracture Date of injury 11/24/2024 The case was discussed with Dr. Santana, as well as the patient's healthcare proxy Fer Nina, and a collaborative treatment plan was formed: Based off of clinical exam findings and imaging the patient does likely have a left femoral neck fracture which would benefit from surgical intervention. The patient does understand nonsurgical intervention would result in having to be totally nonweightbearing on the left lower extremity for a minimum of 3 months, with the associated risks including but not limited to blood clots, pneumonia, bed sores, and significantly decreased mobility likely even when the fracture does heal. Given the patient's activity level and desire to continue remaining active, it would be recommended to pursue surgical intervention. We discussed the procedure in detail along with the risks, benefits, and alternatives. Risks including but not limited to infection, injury to surrounding nerves, soft tissue structures, and bone, small and large vessels, stiffness, fracture, DVT/PE, and the need for further surgery, along with intraoperative complications including but not limited to . We discussed postoperative recovery which includes weight-bearing as tolerated on the left lower extremity, physical therapy, anticoagulation for 6 weeks after surgery, and likely rehab placement upon discharge from the hospital. The patient expresses understanding of this and would like to proceed with left hip hemiarthroplasty. The patient will be booked accordingly. NPO at midnight for surgery tomorrow Patient will require medical clearance from the hospitalist team prior to surgical intervention Patient is added onto the operating room schedule for 730 a.m. on 11/25/2024 Nonweightbearing on left lower extremity until postoperatively Procedures Date of Service Date of Service: 11/24/24
[2024-11-24 13:22] LABS: Troponin-I High Sensitivity 38.8 ng/L (<3.5-17.0)
[2024-11-24] MEDS: 0.9 % Sodium Chloride Flush 3 ML SYRINGE IVFLUSH ×2 (16:08→20:32)
[2024-11-24 17:40] LABS: Troponin-I High Sensitivity 57.6 ng/L (<3.5-17.0)
--- NOTE | 2024-11-24 21:52 | ECG_ITS ---
Test Reason : cp Blood Pressure : */* mmHG Vent. Rate : 57 BPM Atrial Rate : 57 BPM P-R Int : 174 ms QRS Dur : 88 ms QT Int : 424 ms P-R-T Axes : 23 25 38 degrees QTcB Int : 412 ms Sinus bradycardia with marked sinus arrhythmia Otherwise normal ECG When compared with ECG of 24-Nov-2024 09:25, No significant changes seen Referred By: Jing Hernandez Electronically Signed By: YVETTE GUIDO
[2024-11-25] VITALS (11 sets, daily range): BP systolic 92–118; BP diastolic 52–67; PULSE 56–80; RESP 14–16; TEMP 36.1–37.2; O2SAT 93–98
--- NOTE | 2024-11-25 03:32 | PC.NURSE ---
2245 Dr. Saravia notified pt bladder scan 377 mL and had not voided since previous straight cath at 10am in the morning. Dr. Saravia advised to give pt more time to try and urinate. 0[address] Bladder scan [address] Saravia notified and order put in for straight cath. Pt was able to void 200 mL on bedpan. Straight cathed for 350mL and pt tolerated well. BS post-residual 120 mL.
--- NOTE | 2024-11-25 07:03 | P.CONAN_ITS ---
HPI - Anesthesia Eval Consult details Narrative: For left hemiarthroplasty PMFSH Active Problems Active Problems: All Active Problems Closed fracture of neck of left femur (Acute) Past Medical History Medical History HLD (hyperlipidemia) Parkinsons disease Family History Family history of problems with anesthesia: No Surgical History History of Problems with Anesthesia: No Social History Social History Household Members: Spouse Housing: [facility] Do you presently have visiting nurse or other home services: No Unable to assess alcohol history related to: Unknown Patient Tobacco Use Status: Former Tobacco user Meds Allergies Allergy/AdvReac Type Severity Reaction Status Date / Time No Known Allergies Allergy Verified 11/24/24 08:52 Active Medications: Current Medications Acetaminophen (Acetaminophen 325 Mg Tablet) 650 mg PO Q6H PRN PRN Reason: Pain, Mild 1-3,fever,headache Calcium Carbonate (Calcium Carbonate 750 Mg Tab.Chew) 750 mg PO Q4H PRN PRN Reason: Heartburn Carbidopa/Levodopa (Carbidopa/Levodopa 25/100 Tablet) 1 tab PO TID [facility] Last Admin: 11/24/24 20:31 Dose: 1 tab Docusate Sodium (Docusate Sodium 100 Mg Capsule) 100 mg PO BID [facility] Last Admin: 11/24/24 20:31 Dose: 100 mg Escitalopram Oxalate (Escitalopram Oxalate 20 Mg Tablet) 20 mg PO DAILY [facility] Magnesium Hydroxide (Milk Of Magnesia 30 Ml Oral.Susp) 30 ml PO DAILY PRN PRN Reason: Constipation Melatonin (Melatonin 3 Mg Tablet) 6 mg PO BEDTIME PRN PRN Reason: Insomnia Last Admin: 11/24/24 22:38 Dose: 6 mg Morphine Sulfate (Morphine Sulfate 4 Mg/Ml Cartridge) 4 mg IVPUSH Q4H PRN; Protocol PRN Reason: Pain, Severe (Pain Scale 7-10) Last Admin: 11/25/24 03:21 Dose: 4 mg Polyethylene Glycol (Polyethylene Glycol 3350 17 Gm Powd.Pack) 17 gm PO DAILY PRN PRN Reason: Constipation Sodium Chloride (0.9 % Sodium Chloride Flush 3 Ml Syringe) 3 ml IVFLUSH QSHIFT [facility] Last Admin: 11/24/24 20:32 Dose: 3 ml Home Medications ?Medication ?Instructions ?Recorded ?Confirmed ?Last Taken ?Type carbidopa 25 mg-levodopa 100 mg 1 tab PO TID 11/24/24 11/24/24 11/23/24 History tablet escitalopram oxalate 20 mg tablet 20 mg PO DAILY 11/2411/24/24 11/23/24 History [id number] 0.4 mg-calcium 162 1 tab PO DAILY 11/0611/24/24 11/23/24 History mg-iron 18 [id number]-[id number]-[id number] tablet pravastatin 20 mg tablet 20 mg PO BEDTIME 11/24/2411/23/24 History Exam Height,Weight and Vital Signs: Height 5 ft 4 in Weight 72.5 kg Last Vital Signs Temp 97.0 F 11/25/24 03:37 Pulse 56 11/25/24 03:37 Resp 14 11/25/24 03:37 BP 118/63 11/25/24 03:37 Pulse Ox 93 11/25/24 03:37 O2 Del Method Room Air 11/25/24 03:37 O2 Flow Rate 3 11/24/24 09:56 Pertinent Lab Results Pertinent Lab Results: Laboratory Tests 11/24/24 11/24/24 11/24/24 09:11 09:15 10:48 WBC 20.2 H RBC 4.46 Hgb 14.0 Hct 39.7 MCV 89.0 MCH 31.4 MCHC 35.3 H RDW 13.0 Plt Count 198 MPV 9.4 Immature Gran % (Auto) 0.8 H Neut % (Auto) 91.1 H Lymph % (Auto) 3.0 L [place] % (Auto) 5.0 Eos % (Auto) 0.0 Baso % (Auto) 0.1 Lymph # (Auto) 0.6 L [place] # (Auto) 1.0 Eos # (Auto) 0.0 Baso # (Auto) 0.0 Abs Immat Gran (auto) 0.17 H Absolute Neuts (auto) 18.4 H Absolute Nucleated RBC 0.000 Nucleated RBC % (auto) 0.0 Smear Tech's Comments VERIFIED Sodium 139 Potassium 3.5 Chloride 106 Carbon Dioxide 25 Anion Gap 12 BUN 21 H Creatinine 0.79 Estim Creat Clear Calc 54.0 Estimated GFR > 60 Random Glucose 120 H Calcium 9.2 Total Bilirubin 1.7 H AST 33 H ALT 20 Alkaline Phosphatase 58 Troponin I High Sens Total Protein 6.4 L Albumin 4.3 TSH Urine Color Dark Yellow Urine Appearance Clear Urine pH 5.5 Ur Specific [place] >= 1.030 H Urine Protein 30 (1+) H Urine Glucose (UA) Negative Urine Ketones 40 Urine Blood Trace H Urine Nitrite Negative Ur Leukocyte Esterase Trace H Urine RBC 3-5 H Urine WBC 0-5 Ur Squamous Epith Cells 0-2 Urine Bacteria None Seen Hyaline Casts 11-20 Granular Casts Present COVID-19 (SUNITA) Negative COVID-19 Clin Com See Note Influenza Type A (KENDRA) Negative Influenza Type B (KENDRA) Negative Influenza A & B Note See Note Blood Type Antibody Screen 11/24/24 11/24/24 11/24/24 12:04 12:49 16:57 WBC RBC Hgb Hct MCV MCH MCHC RDW Plt Count MPV Immature Gran % (Auto) Neut % (Auto) Lymph % (Auto) [place] % (Auto) Eos % (Auto) Baso % (Auto) Lymph # (Auto) [place] # (Auto) Eos # (Auto) Baso # (Auto) Abs Immat Gran (auto) Absolute Neuts (auto) Absolute Nucleated RBC Nucleated RBC % (auto) Smear Tech's Comments Sodium Potassium Chloride Carbon Dioxide Anion Gap BUN Creatinine Estim Creat Clear Calc Estimated GFR Random Glucose Calcium Total Bilirubin AST ALT Alkaline Phosphatase Troponin I High Sens 38.8 H 57.6 H* Total Protein Albumin TSH 0.59 Urine Color Urine Appearance Urine pH Ur Specific [place] Urine Protein Urine Glucose (UA) Urine Ketones Urine Blood Urine Nitrite Ur Leukocyte Esterase Urine RBC Urine WBC Ur Squamous Epith Cells Urine Bacteria Hyaline Casts Granular Casts COVID-19 (SUNITA) COVID-19 Clin Com Influenza Type A (KENDRA) Influenza Type B (KENDRA) Influenza A & B Note Blood Type O Positive Antibody Screen NEGATIVE Airway Mallampati Class: II TM Dist: <=3cm Neck ROM: Full Loose/Missing/Broken Teeth: No Heart: ok Lungs: ok Assessment and Plan Assessment Anesthesia Assessment: Anesthesia Plan Discussed and Chart Reviewed Final Anesthetic Review Family History of Problems with Anesthesia: No History of Problems with Anesthesia: No NPO: Yes ASA Class: IV Final Preanesthetic Review: No Changes in Pt Med Stat, Meds/Allgs Chart Reviewed, Consent Obtained/Reviewed and Anes Risks/Benef Reviewed Patient Risk: High Procedure Risk: Intermediate Anesthetic Plan Anesthetic Plan: Spinal and Agree w/ Assess. and Plan Disposition: Standard PACU
[2024-11-25 07:04] LABS: MANUAL DIFF FLAG NO
[2024-11-25 07:09] LABS: Hematocrit 37.6 % (37.0-47.0); Hemoglobin 12.7 g/dl (12.0-16.0); Imm Gran Abs Auto 0.07 X10*3/uL (0.00-0.03); Imm Gran Pct Auto 0.6 % (0.0-0.4); Lymphocytes Absolute Auto 1.2 X10*3/uL (1.2-4.9); Mean Corpuscular HGB Conc 33.8 g/dl (31.0-35.0); Mean Corpuscular Hemoglobin 30.8 pg (27.0-33.0); Mean Corpuscular Volume 91.3 fL (80.0-98.0); NRBC Abs Auto 0.000 X10*3/uL (0.0-0.012); NRBC Pct Auto 0.0 /100WBC (0.0-0.2); Platelet Count 171 X10*3/uL (160-400); Red Blood Count 4.12 X10*6/uL (4.20-5.50); White Blood Count 12.5 X10*3/uL (4.8-10.8)
[2024-11-25 07:24] LABS: Alanine Aminotransferase 8 U/L (0-31); Albumin Level 3.6 g/dL (3.5-5.0); Alkaline Phosphatase 53 U/L (39-117); Anion Gap 11 (12-20); Aspartate Amino Transferase 39 U/L (5-31); Blood Urea Nitrogen 21 mg/dL (9-16); Calcium 8.5 mg/dL (8.4-10.2); Carbon Dioxide 23 mmol/L (22-29); Chloride 108 mmol/L (96-108); Creatinine Clr Calc Pharmacy 58.7; Estimated Glomerular Filt Rate > 60; Potassium 3.7 mmol/L (3.3-5.1); Sodium 138 mmol/L (135-145); Total Protein 5.7 g/dL (6.5-8.0)
--- NOTE | 2024-11-25 07:25 | HO.PM.IMPN ---
Subjective Subjective Date of Service: 11/25/24 Interval History: s/p R hip ORIF Tele said she was in Mobitz Type I Will get labs and replete electrolytes, cont tele and escalate her to Tele Review of Systems Review of Systems: Yes all other systems are reviewed and are negative Physical Exam Exam: Exam: General: AOx0, somnolent post anesthesia Resp: CTA bilaterally CVS: S1, S2, Sinus bradycardia GI: +BS, NT, no distention Skin: Surgical site L hip - c/d/i Vital Signs: Vital Signs: Last Vital Signs Temp 97.0 F 11/25/24 03:37 Pulse 56 11/25/24 03:37 Resp 14 11/25/24 03:37 BP 118/63 11/25/24 03:37 Pulse Ox 93 11/25/24 03:37 O2 Del Method Room Air 11/25/24 03:37 O2 Flow Rate 3 11/24/24 09:56 BMI result Body Mass Index 27.4 Objective Data Active Medications Acetaminophen (Acetaminophen 325 Mg Tablet) 650 mg PO Q6H PRN PRN Reason: Pain, Mild 1-3,fever,headache Calcium Carbonate (Calcium Carbonate 750 Mg Tab.Chew) 750 mg PO Q4H PRN PRN Reason: Heartburn Carbidopa/Levodopa (Carbidopa/Levodopa 25/100 Tablet) 1 tab PO TID [facility] Last Admin: 11/24/24 20:31 Dose: 1 tab Documented By: NITHYA Docusate Sodium (Docusate Sodium 100 Mg Capsule) 100 mg PO BID [facility] Last Admin: 11/24/24 20:31 Dose: 100 mg Documented By: NITHYA Escitalopram Oxalate (Escitalopram Oxalate 20 Mg Tablet) 20 mg PO DAILY [facility] Magnesium Hydroxide (Milk Of Magnesia 30 Ml Oral.Susp) 30 ml PO DAILY PRN PRN Reason: Constipation Melatonin (Melatonin 3 Mg Tablet) 6 mg PO BEDTIME PRN PRN Reason: Insomnia Last Admin: 11/24/24 22:38 Dose: 6 mg Documented By: NITHYA Morphine Sulfate (Morphine Sulfate 4 Mg/Ml Cartridge) 4 mg IVPUSH Q4H PRN; Protocol PRN Reason: Pain, Severe (Pain Scale 7-10) Last Admin: 11/25/24 03:21 Dose: 4 mg Documented By: NITHYA Polyethylene Glycol (Polyethylene Glycol 3350 17 Gm Powd.Pack) 17 gm PO DAILY PRN PRN Reason: Constipation Sodium Chloride (0.9 % Sodium Chloride Flush 3 Ml Syringe) 3 ml IVFLUSH QSHIFT [facility] Last Admin: 11/24/24 20:32 Dose: 3 ml Documented By: NITHYA Labs 11/25/24 06:07 11/25/24 13:31 Labs: Laboratory Results - last 24 hr 11/24/24 11/24/24 11/24/24 09:11 09:15 10:48 MCV 89.0 MCH 31.4 MCHC 35.3 H RDW 13.0 Plt Count 198 MPV 9.4 Immature Gran % (Auto) 0.8 H Neut % (Auto) 91.1 H Lymph % (Auto) 3.0 L [place] % (Auto) 5.0 Eos % (Auto) 0.0 Baso % (Auto) 0.1 Lymph # (Auto) 0.6 L [place] # (Auto) 1.0 Eos # (Auto) 0.0 Baso # (Auto) 0.0 Abs Immat Gran (auto) 0.17 H Absolute Neuts (auto) 18.4 H Absolute Nucleated RBC 0.000 Nucleated RBC % (auto) 0.0 Smear Tech's Comments VERIFIED Anion Gap 12 Estim Creat Clear Calc 54.0 Estimated GFR > 60 Random Glucose 120 H Calcium 9.2 Total Bilirubin 1.7 H Direct Bilirubin AST 33 H ALT 20 Alkaline Phosphatase 58 Troponin I High Sens Total Protein 6.4 L Albumin 4.3 TSH Urine Color Dark Yellow Urine Appearance Clear Urine pH 5.5 Ur Specific [place] >= 1.030 H Urine Protein 30 (1+) H Urine Glucose (UA) Negative Urine Ketones 40 Urine Blood Trace H Urine Nitrite Negative Ur Leukocyte Esterase Trace H Urine RBC 3-5 H Urine WBC 0-5 Ur Squamous Epith Cells 0-2 Urine Bacteria None Seen Hyaline Casts 11-20 Granular Casts Present COVID-19 (SUNITA) Negative COVID-19 Clin Com See Note Influenza Type A (KENDRA) Negative Influenza Type B (KENDRA) Negative Influenza A & B Note See Note Blood Type Antibody Screen 11/24/24 11/24/24 11/24/24 12:04 12:49 16:57 MCV MCH MCHC RDW Plt Count MPV Immature Gran % (Auto) Neut % (Auto) Lymph % (Auto) [place] % (Auto) Eos % (Auto) Baso % (Auto) Lymph # (Auto) [place] # (Auto) Eos # (Auto) Baso # (Auto) Abs Immat Gran (auto) Absolute Neuts (auto) Absolute Nucleated RBC Nucleated RBC % (auto) Smear Tech's Comments Anion Gap Estim Creat Clear Calc Estimated GFR Random Glucose Calcium Total Bilirubin Direct Bilirubin AST ALT Alkaline Phosphatase Troponin I High Sens 38.8 H 57.6 H* Total Protein Albumin TSH 0.59 Urine Color Urine Appearance Urine pH Ur Specific [place] Urine Protein Urine Glucose (UA) Urine Ketones Urine Blood Urine Nitrite Ur Leukocyte Esterase Urine RBC Urine WBC Ur Squamous Epith Cells Urine Bacteria Hyaline Casts Granular Casts COVID-19 (SUNITA) COVID-19 Clin Com Influenza Type A (KENDRA) Influenza Type B (KENDRA) Influenza A & B Note Blood Type O Positive Antibody Screen NEGATIVE 11/25/24 06:07 MCV 91.3 MCH 30.8 MCHC 33.8 RDW 13.1 Plt Count 171 MPV 9.9 Immature Gran % (Auto) 0.6 H Neut % (Auto) 81.7 H Lymph % (Auto) 9.3 L [place] % (Auto) 6.3 Eos % (Auto) 1.6 Baso % (Auto) 0.5 Lymph # (Auto) 1.2 [place] # (Auto) 0.8 Eos # (Auto) 0.2 Baso # (Auto) 0.1 Abs Immat Gran (auto) 0.07 H Absolute Neuts (auto) 10.3 H Absolute Nucleated RBC 0.000 Nucleated RBC % (auto) 0.0 Smear Tech's Comments Anion Gap 11 L Estim Creat Clear Calc 58.7 Estimated GFR > 60 Random Glucose 95 Calcium 8.5 D Total Bilirubin 1.9 H Direct Bilirubin 0.6 H AST 39 H ALT 8 Alkaline Phosphatase 53 Troponin I High Sens Total Protein 5.7 L Albumin 3.6 TSH Urine Color Urine Appearance Urine pH Ur Specific [place] Urine Protein Urine Glucose (UA) Urine Ketones Urine Blood Urine Nitrite Ur Leukocyte Esterase Urine RBC Urine WBC Ur Squamous Epith Cells Urine Bacteria Hyaline Casts Granular Casts COVID-19 (SUNITA) COVID-19 Clin Com Influenza Type A (KENDRA) Influenza Type B (KENDRA) Influenza A & B Note Blood Type Antibody Screen Assessment and Plan (1) Closed fracture of neck of left femur: Status: Acute Plan pt is an 84 yo new to the hosp with PMH of known Parkinsons dementia,mobility and autonomic dysfunction who sustained a presumed mechanical fall 2/2 baseline medical and psych conditions and sustained a L femoral neck # s/p ORIF on 11/25/24 Possible mechanical fall in a pt with advanced parkinsons dx s/p ORIF on 11/25/24 Pain control with Tylenol, oxycodone, Dilaudid, Robaxin, lidocaine patch slowly resume clear liquid diet if awake enough- she was very somnolent post anesthesia Tele PT OT -limited over the weekend Orthopedic consulted by ED DVT prophylaxis with Aspirin 325 BID per ortho recs Advanced parkinsons dx - cont home meds- Carbidopa/Levodopa Type I mobitz - appears yessenia her baseline Type II NM - Will trend , no rx indicated, GDMT CI given significant soft BP -SBP 80s Chronic Hypotension - likely her new baseline , use prn midodrine , family doesnt want ICU or pressors Autonomic dysfunction - Midodrine prn , FIDEL stockings, trendelenberg prn .DVT with aspirin -45 days Pt at significant risk of delirium , falls and needs PT/OT before going back to [facility] eventually. This note is constructed using voice recognition software. While every effort has been made to ensure accuracy, creeler errors may have been included. Quality Stroke Does the patient have a stroke diagnosis?: No VTE Prior VTE?: No VTE Risk Level:: Medical - moderate - high VTE Device Contraindication: N/A - Device Ordered VTE Drug Contraindication: Treatment Not Indicated
--- NOTE | 2024-11-25 07:28 | MHC.SHP ---
Pre-Procedural Eval Section A - 24 Hr Update-Section A only Date of Service: 11/25/24 The patient is an INPATIENT: Yes Changes since office visit: No Cold of Flu in the past 2 weeks, No New Medical Problems, No Changes in Medication and No Patient answered all questions The patient has been examined within 24 hours of the surgical procedure. The History & Physical has been completed within 30 days and I have reviewed it.: Yes Section B - Complete if H&P > 30 days Chief Complaint: left femoral neck fracture Allergies: Allergies Allergy/AdvReac Type Severity Reaction Status Date / Time No Known Allergies Allergy Verified 11/24/24 08:52 Plan I have reviewed the history and physical and performed a pertinent physical examination on my patient. No changes have occurred unless specified. Time Spent With Patient Time: Total time managing care of this patient today ____ minutes.
--- NOTE | 2024-11-25 09:16 | P.BOP_ITS ---
Brief Operative Note Date of Service: 11/25/24 Pre-op diagnosis: left fem neck fx Post-op diagnosis: same Procedure: left hip maurice Implants: Jac AccoladeC #[id number] with - bipolar Surgeon: Bertrand Santana MD Anesthesia: GETA and local Was an Organizational Development Specialist used for this Procedure?: Yes Organizational Development Specialist: Fer Diaz Estimated blood loss (mL): 200 IV fluids (mL): 750 Urine output (mL): 200 Pathology: other Condition: stable Disposition: PACU
[2024-11-25] MEDS: Lactated Ringers 1,000 ML 100 ML IVCONT ×2 (11:43→22:35)
--- NOTE | 2024-11-25 13:11 | ECG_ITS ---
Test Reason : Mobitz Type II Blood Pressure : */* mmHG Vent. Rate : 61 BPM Atrial Rate : 61 BPM P-R Int : 194 ms QRS Dur : 86 ms QT Int : 448 ms P-R-T Axes : 11 -28 44 degrees QTcB Int : 450 ms Sinus rhythm with 2nd degree A-V block (Mobitz I) Inferior infarct , age undetermined Abnormal ECG When compared with ECG of 24-Nov-2024 21:52, No significant changes seen Referred By: Jing Hernandez Electronically Signed By: YVETTE GUIDO
--- NOTE | 2024-11-25 13:41 | W.MHC.ACPN ---
Advanced Care Planning Note Advanced Care Planning Note Discussed with: family member(s) Time spent (in minutes): 35 Narrative: Spoke to son at bedside - he said his mom never wanted to be kept alive artificially and said her code status has always been dnr/dni Requested him to bring in the paperwork for HCP and MOLST form Problems Discussed (1) Closed fracture of neck of left femur:
[2024-11-25 13:58] LABS: Alanine Aminotransferase 16 U/L (0-31); Albumin Level 3.3 g/dL (3.5-5.0); Alkaline Phosphatase 51 U/L (39-117); Anion Gap 11 (12-20); Aspartate Amino Transferase 43 U/L (5-31); Blood Urea Nitrogen 20 mg/dL (9-16); Calcium 8.3 mg/dL (8.4-10.2); Carbon Dioxide 24 mmol/L (22-29); Chloride 107 mmol/L (96-108); Creatinine Clr Calc Pharmacy 54.2; Estimated Glomerular Filt Rate > 60; Magnesium 2.0 mg/dL (1.6-2.6); Potassium 3.6 mmol/L (3.3-5.1); Sodium 138 mmol/L (135-145); Total Protein 5.3 g/dL (6.5-8.0)
[2024-11-25 14:08] LABS: Troponin-I High Sensitivity 204.9 ng/L (<3.5-17.0)
--- NOTE | 2024-11-25 16:35 | MHC.CM.PN ---
Addendum entered by Nery Farfan 11/26/24 09:00: COPY OF HCP NOW SCANNED INTO [facility]. Original Note: CM MET WITH PT AND SON AT BEDSIDE PT LIVES AT [address] WITH HER SHE IS INDEPENDENT WITH CARE AND USUALLY REQUIRES NO DME SHE HAS A CANE AND WALKER SHE USES PRN SON WILL BRING COPY OF HCP PCP: ALICIA SELF IMM DELIVERED DCP STR: [facility] TRANSPORT
[2024-11-26 03:51] VITALS: BP 123/64; PULSE 85; RESP 16; TEMP 36.7; O2SAT 94
--- NOTE | 2024-11-26 06:58 | HO.PM.IMPN ---
Subjective Subjective Date of Service: 11/26/24 Interval History: s/p R hip ORIF- stable trop- type 2 mi, no indication to trend Review of Systems Review of Systems: Yes all other systems are reviewed and are negative Physical Exam Exam: Exam: General: AOx0, somnolent post anesthesia Resp: CTA bilaterally CVS: S1, S2, Sinus bradycardia GI: +BS, NT, no distention Skin: Surgical site L hip - c/d/i Vital Signs: Vital Signs: Last Vital Signs Temp 98.1 F 11/26/24 03:51 Pulse 85 11/26/24 03:51 Resp 16 11/26/24 03:51 BP 123/64 11/26/24 03:51 Pulse Ox 94 11/26/24 03:51 O2 Del Method Nasal Cannula 11/26/24 03:51 O2 Flow Rate 1 11/26/24 03:51 BMI result Body Mass Index 27.4 Extrem: Other: Dressing on left hip clean, dry, intact Mild ecchymosis has begun to develop around the incision site, no erythema or evidence of infection No evidence of infection Patient is able to flex and extend the digits of the left foot without difficulty Compartments soft, nontender Distal sensation intact Capillary refill brisk Objective Data Active Medications Acetaminophen (Acetaminophen 325 Mg Tablet) 650 mg PO Q6H PRN PRN Reason: Pain, Mild 1-3,fever,headache Aspirin (Aspirin 325 Mg Tablet) 325 mg PO BID [facility] Last Admin: 11/25/24 20:48 Dose: 325 mg Documented By: RYLAND Calcium Carbonate (Calcium Carbonate 750 Mg Tab.Chew) 750 mg PO Q4H PRN PRN Reason: Heartburn Carbidopa/Levodopa (Carbidopa/Levodopa 25/100 Tablet) 1 tab PO TID [facility] Last Admin: 11/25/24 20:49 Dose: 1 tab Documented By: RYLAND Docusate Sodium (Docusate Sodium 100 Mg Capsule) 100 mg PO BID [facility] Last Admin: 11/25/24 20:50 Dose: 100 mg Documented By: RYLAND Escitalopram Oxalate (Escitalopram Oxalate 20 Mg Tablet) 20 mg PO DAILY [facility] Last Admin: 11/25/24 10:21 Dose: Not Given Documented By: GLORIA Non-Admin Reason: surgery/ post op sedated Lactated Ringer's (Lr) 1,000 mls @ 100 mls/hr IVCONT .Q10H [facility] Last Admin: 11/25/24 22:35 Dose: 100 mls/hr Documented By: RYLAND Magnesium Hydroxide (Milk Of Magnesia 30 Ml Oral.Susp) 30 ml PO DAILY PRN PRN Reason: Constipation Melatonin (Melatonin 3 Mg Tablet) 6 mg PO BEDTIME PRN PRN Reason: Insomnia Last Admin: 11/24/24 22:38 Dose: 6 mg Documented By: NITHYA Morphine Sulfate (Morphine Sulfate 4 Mg/Ml Cartridge) 4 mg IVPUSH Q4H PRN; Protocol PRN Reason: Pain, Severe (Pain Scale 7-10) Last Admin: 11/25/24 20:49 Dose: 4 mg Documented By: RYLAND Polyethylene Glycol (Polyethylene Glycol 3350 17 Gm Powd.Pack) 17 gm PO DAILY PRN PRN Reason: Constipation Pravastatin Sodium (Pravastatin Sodium 20 Mg Tablet) 20 mg PO BEDTIME [facility] Last Admin: 11/25/24 20:49 Dose: 20 mg Documented By: RYLAND Sodium Chloride (0.9 % Sodium Chloride Flush 3 Ml Syringe) 3 ml IVFLUSH QSHIFT [facility] Last Admin: 11/26/24 00:15 Dose: Not Given Documented By: RYLAND Non-Admin Reason: IV Running Sodium Chloride (0.9 % Sodium Chloride Flush 3 Ml Syringe) 3 ml IVFLUSH QSHIFT [facility] Last Admin: 11/26/24 00:15 Dose: Not Given Documented By: RYLAND Non-Admin Reason: Duplicate Order Labs 11/26/24 08:13 11/26/24 08:13 Labs: Laboratory Results - last 24 hr 11/25/24 11/25/24 11/25/24 06:07 13:31 16:54 MCV 91.3 MCH 30.8 MCHC 33.8 RDW 13.1 Plt Count 171 MPV 9.9 Immature Gran % (Auto) 0.6 H Neut % (Auto) 81.7 H Lymph % (Auto) 9.3 L [place] % (Auto) 6.3 Eos % (Auto) 1.6 Baso % (Auto) 0.5 Lymph # (Auto) 1.2 [place] # (Auto) 0.8 Eos # (Auto) 0.2 Baso # (Auto) 0.1 Abs Immat Gran (auto) 0.07 H Absolute Neuts (auto) 10.3 H Absolute Nucleated RBC 0.000 Nucleated RBC % (auto) 0.0 Anion Gap 11 L 11 L Estim Creat Clear Calc 58.7 54.2 Estimated GFR > 60 > 60 Random Glucose 95 143 H Calcium 8.5 D 8.3 L Magnesium 2.0 Total Bilirubin 1.9 H 1.5 H Direct Bilirubin 0.6 H AST 39 H 43 H ALT 8 16 Alkaline Phosphatase 53 51 Troponin I High Sens 204.9 H* D Total Protein 5.7 L 5.3 L Albumin 3.6 3.3 L Hold Green Top See Note Assessment and Plan (1) Closed fracture of neck of left femur: Status: Acute Plan pt is an 84 yo new to the hosp with PMH of known Parkinsons dementia,mobility and autonomic dysfunction who sustained a presumed mechanical fall 2/2 baseline medical and psych conditions and sustained a L femoral neck # s/p ORIF on 11/25/24 Possible mechanical fall in a pt with advanced parkinsons dx s/p ORIF on 11/25/24 Pain control with Tylenol, oxycodone, Dilaudid, Robaxin, lidocaine patch Tele PT OT -limited over the weekend Orthopedic consulted by ED DVT prophylaxis with Aspirin 325 BID per ortho recs Advanced parkinsons dx - cont home meds- Carbidopa/Levodopa Type I mobitz - appears yessenia her baseline Type II ND - Will trend , no rx indicated, GDMT CI given significant soft BP -SBP 80s Chronic Hypotension - likely her new baseline , use prn midodrine , family doesnt want ICU or pressors Autonomic dysfunction - Midodrine prn , FIDEL stockings, trendelenberg prn .DVT with aspirin -45 days Pt at significant risk of delirium , falls and needs PT/OT before going back to [facility] eventually. This note is constructed using voice recognition software. While every effort has been made to ensure accuracy, pipe bending machine operator errors may have been included. Quality Stroke Does the patient have a stroke diagnosis?: No VTE Prior VTE?: No VTE Risk Level:: Medical - moderate - high VTE Device Contraindication: N/A - Device Ordered VTE Drug Contraindication: Treatment Not Indicated
--- NOTE | 2024-11-26 07:04 | PM.PNORT ---
Subjective Subjective Date of Service: 11/26/24 Interval history: Postop day 1 status post left hip hemiarthroplasty Patient resting comfortably in bed this morning Pain well managed per the patient No acute events overnight No other acute complaints or concerns at this time Physical Exam Vital Signs: Vital Signs: Last Vital Signs Temp 98.1 F 11/26/24 03:51 Pulse 85 11/26/24 03:51 Resp 16 11/26/24 03:51 BP 123/64 11/26/24 03:51 Pulse Ox 94 11/26/24 03:51 O2 Del Method Nasal Cannula 11/26/24 03:51 O2 Flow Rate 1 11/26/24 03:51 BMI result Body Mass Index 27.4 Extrem: Other: Dressing on left hip clean, dry, intact Mild ecchymosis has begun to develop around the incision site, no erythema or evidence of infection No evidence of infection Patient is able to flex and extend the digits of the left foot without difficulty Compartments soft, nontender Distal sensation intact Capillary refill brisk Procedures Date of Service Date of Service: 11/26/24 Progress Note: A&P Assessment and plan (1) Status post hemiarthroplasty of left hip: Status: Acute Plan 1. Status post left hip hemiarthroplasty DOS 11/25/2024 Continue pain management Continue ASA for DVT prophylaxis Weight-bearing as tolerated on left lower extremity PT/OT eval pending Dispo planning-PT/OT, pain management, medical clearance Time Spent With Patient Time: Total time managing care of this patient today ____ minutes. Quality Stroke Does the patient have a stroke diagnosis?: No VTE Prior VTE?: No VTE Risk Level:: Medical - moderate - high VTE Device Contraindication: N/A - Device Ordered VTE Drug Contraindication: Treatment Not Indicated
[2024-11-26 07:20] VITALS: BP 147/67; PULSE 79; RESP 15; TEMP 36.2; O2SAT 96
--- NOTE | 2024-11-26 08:01 | MHC.CM.PN ---
Addendum entered by Jelly Crocker 11/26/24 09:07: CORRECTION! Son/Fer is the HCP. Original Note: CM met with Patient at bedside and addressed IMM with her, providing Patient with the original and a copy has been placed on the chart. Patient lives with her Husdband/HCP @ [facility] and she uses a walker at times to assist with mobility. PT is recommending STR and [facility] is Patient's first choice facility. CM has initiated and will follow for dc planning. PCP is Dr. Pancho Richards and Patient will require BLS transport at time of dc.
[2024-11-26 08:18] LABS: MANUAL DIFF FLAG NO
[2024-11-26 08:22] LABS: Hematocrit 32.4 % (37.0-47.0); Hemoglobin 11.1 g/dl (12.0-16.0); Imm Gran Abs Auto 0.06 X10*3/uL (0.00-0.03); Imm Gran Pct Auto 0.5 % (0.0-0.4); Lymphocytes Absolute Auto 1.2 X10*3/uL (1.2-4.9); Mean Corpuscular HGB Conc 34.3 g/dl (31.0-35.0); Mean Corpuscular Hemoglobin 31.4 pg (27.0-33.0); Mean Corpuscular Volume 91.8 fL (80.0-98.0); NRBC Abs Auto 0.000 X10*3/uL (0.0-0.012); NRBC Pct Auto 0.0 /100WBC (0.0-0.2); Platelet Count 143 X10*3/uL (160-400); Red Blood Count 3.53 X10*6/uL (4.20-5.50); White Blood Count 11.2 X10*3/uL (4.8-10.8)
[2024-11-26 08:46] LABS: Anion Gap 11 (12-20); Blood Urea Nitrogen 16 mg/dL (9-16); Calcium 8.1 mg/dL (8.4-10.2); Carbon Dioxide 26 mmol/L (22-29); Chloride 105 mmol/L (96-108); Creatinine Clr Calc Pharmacy 63.2; Estimated Glomerular Filt Rate > 60; Magnesium 1.9 mg/dL (1.6-2.6); Potassium 3.6 mmol/L (3.3-5.1); Sodium 138 mmol/L (135-145)
[2024-11-26 09:14] LABS: Troponin-I High Sensitivity 84.5 ng/L (<3.5-17.0)
[2024-11-26 12:00] VITALS: BP 105/68; PULSE 62; RESP 18; TEMP 36.6; O2SAT 94
[2024-11-26] MEDS: 0.9 % Sodium Chloride Flush 3 ML SYRINGE IVFLUSH ×2 (15:44→21:02)
[2024-11-26 15:56] VITALS: BP 135/71; PULSE 78; RESP 18; TEMP 37.2; O2SAT 94
[2024-11-26 20:00] VITALS: BP 154/69; PULSE 57; RESP 16; TEMP 36.7; O2SAT 96
[2024-11-27] VITALS: BP 136/63; PULSE 73; RESP 16; TEMP 36.7; O2SAT 92
[2024-11-27 03:52] VITALS: BP 145/66; PULSE 67; RESP 16; TEMP 36.7; O2SAT 92
[2024-11-27 03:52] LABS: Appearance Urine Clear; Glucose Urine UA Negative (Negative); PH 6.0 (5.0-9.0); Specific Gravity - Urine 1.010 (1.005-1.025); UMIC TRIGGER UACC YES
[2024-11-27 06:34] LABS: MANUAL DIFF FLAG NO
[2024-11-27 06:36] LABS: Hematocrit 29.7 % (37.0-47.0); Hemoglobin 10.0 g/dl (12.0-16.0); Imm Gran Abs Auto 0.05 X10*3/uL (0.00-0.03); Imm Gran Pct Auto 0.5 % (0.0-0.4); Lymphocytes Absolute Auto 1.2 X10*3/uL (1.2-4.9); Mean Corpuscular HGB Conc 33.7 g/dl (31.0-35.0); Mean Corpuscular Hemoglobin 31.2 pg (27.0-33.0); Mean Corpuscular Volume 92.5 fL (80.0-98.0); NRBC Abs Auto 0.000 X10*3/uL (0.0-0.012); NRBC Pct Auto 0.0 /100WBC (0.0-0.2); Platelet Count 149 X10*3/uL (160-400); Red Blood Count 3.21 X10*6/uL (4.20-5.50); White Blood Count 10.3 X10*3/uL (4.8-10.8)
[2024-11-27 07:03] LABS: Anion Gap 9 (12-20); Blood Urea Nitrogen 15 mg/dL (9-16); Calcium 8.0 mg/dL (8.4-10.2); Carbon Dioxide 29 mmol/L (22-29); Chloride 105 mmol/L (96-108); Creatinine Clr Calc Pharmacy 66.1; Estimated Glomerular Filt Rate > 60; Potassium 3.6 mmol/L (3.3-5.1); Sodium 139 mmol/L (135-145)
--- NOTE | 2024-11-27 07:23 | HO.PM.IMPN ---
Subjective Subjective Date of Service: 11/27/24 Physical Exam Vital Signs: Vital Signs: Last Vital Signs Temp 98.1 F 11/27/24 03:52 Pulse 67 11/27/24 03:52 Resp 16 11/27/24 03:52 BP 145/66 H 11/27/24 03:52 Pulse Ox 92 11/27/24 03:52 O2 Del Method Room Air 11/27/24 03:52 O2 Flow Rate 1 11/26/24 03:51 BMI result Body Mass Index 27.4 Objective Data Active Medications Acetaminophen (Acetaminophen 325 Mg Tablet) 650 mg PO Q6H PRN PRN Reason: Pain, Mild 1-3,fever,headache Aspirin (Aspirin 325 Mg Tablet) 325 mg PO BID [facility] Last Admin: 11/26/24 21:00 Dose: 325 mg Documented By: CIPRIANO Calcium Carbonate (Calcium Carbonate 750 Mg Tab.Chew) 750 mg PO Q4H PRN PRN Reason: Heartburn Carbidopa/Levodopa (Carbidopa/Levodopa 25/100 Tablet) 1 tab PO TID [facility] Last Admin: 11/26/24 21:01 Dose: 1 tab Documented By: CIPRIANO Docusate Sodium (Docusate Sodium 100 Mg Capsule) 100 mg PO BID [facility] Last Admin: 11/26/24 21:01 Dose: 100 mg Documented By: CIPRIANO Escitalopram Oxalate (Escitalopram Oxalate 20 Mg Tablet) 20 mg PO DAILY [facility] Last Admin: 11/26/24 07:41 Dose: 20 mg Documented By: MICHELE Magnesium Hydroxide (Milk Of Magnesia 30 Ml Oral.Susp) 30 ml PO DAILY PRN PRN Reason: Constipation Melatonin (Melatonin 3 Mg Tablet) 6 mg PO BEDTIME PRN PRN Reason: Insomnia Last Admin: 11/27/24 00:46 Dose: 6 mg Documented By: CIPRIANO Morphine Sulfate (Morphine Sulfate 4 Mg/Ml Cartridge) 4 mg IVPUSH Q4H PRN; Protocol PRN Reason: Pain, Severe (Pain Scale 7-10) Last Admin: 11/26/24 21:01 Dose: 4 mg Documented By: CIPRIANO Polyethylene Glycol (Polyethylene Glycol 3350 17 Gm Powd.Pack) 17 gm PO DAILY PRN PRN Reason: Constipation Pravastatin Sodium (Pravastatin Sodium 20 Mg Tablet) 20 mg PO BEDTIME [facility] Last Admin: 11/26/24 21:01 Dose: 20 mg Documented By: CIPRIANO Sodium Chloride (0.9 % Sodium Chloride Flush 3 Ml Syringe) 3 ml IVFLUSH [facility] Last Admin: 11/26/24 21:02 Dose: 3 ml Documented By: CIPRIANO Sodium Chloride (0.9 % Sodium Chloride Flush 3 Ml Syringe) 3 ml IVFLUSH [facility] Last Admin: 11/26/24 21:45 Dose: Not Given Documented By: CIPRIANO Non-Admin Reason: Duplicate Order Labs 11/27/24 06:16 11/27/24 06:16 Labs: Laboratory Results - last 24 hr 11/26/24 11/27/24 11/27/24 08:13 03:31 06:16 MCV 91.8 92.5 MCH 31.4 31.2 MCHC 34.3 33.7 RDW 13.3 13.1 Plt Count 143 L 149 L MPV 9.4 9.8 Immature Gran % (Auto) 0.5 H 0.5 H Neut % (Auto) 77.0 H 73.6 H Lymph % (Auto) 10.6 L 11.8 L [place] % (Auto) 8.1 10.5 Eos % (Auto) 3.4 3.0 Baso % (Auto) 0.4 0.6 Lymph # (Auto) 1.2 1.2 [place] # (Auto) 0.9 1.1 Eos # (Auto) 0.4 0.3 Baso # (Auto) 0.1 0.1 Abs Immat Gran (auto) 0.06 H 0.05 H Absolute Neuts (auto) 8.6 H 7.6 Absolute Nucleated RBC 0.000 0.000 Nucleated RBC % (auto) 0.0 0.0 Anion Gap 11 L 9 L Estim Creat Clear Calc 63.2 66.1 Estimated GFR > 60 > 60 Fasting Glucose 111 H 106 H Calcium 8.1 L 8.0 L Magnesium 1.9 Troponin I High Sens 84.5 H* D Urine Color Yellow Urine Appearance Clear Urine pH 6.0 Ur Specific [place] 1.010 Urine Protein Negative Urine Glucose (UA) Negative Urine Ketones 15 Urine Blood Negative Urine Nitrite Negative Ur Leukocyte Esterase Trace H Urine RBC 0-2 Urine WBC 0-5 Ur Squamous Epith Cells 0-2 Urine Bacteria None Seen Hyaline Casts 0-2 Quality Stroke Does the patient have a stroke diagnosis?: No VTE Prior VTE?: No VTE Risk Level:: Medical - moderate - high VTE Device Contraindication: N/A - Device Ordered VTE Drug Contraindication: Treatment Not Indicated
[2024-11-27 07:30] VITALS: BP 149/63; PULSE 54; RESP 16; TEMP 36.6; O2SAT 94
[2024-11-27] MEDS: 0.9 % Sodium Chloride Flush 3 ML SYRINGE IVFLUSH ×2 (08:47→15:54)
[2024-11-27 11:25] VITALS: BP 97/57; PULSE 58; RESP 18; TEMP 36.2; O2SAT 96
--- NOTE | 2024-11-27 12:21 | MHC.CM.PN ---
EMR REVIEWED, PT S/P L HIP FX, [facility] HAS NO BEDS, [facility] NOW REVIEWING, SNF REFERRAL UPDATED W/OT/PT/MED LIST, CM WILL CONT TO FOLLOW.
--- NOTE | 2024-11-27 14:41 | PM.DS ---
DS: Providers Provider Date of Service: 11/27/24 Date of admission: 11/24/24 11:15 Date of discharge: 11/27/24 Primary care physician: Pancho Richards MD Consults: 11/24/24 11:22 Consult to Orthopedics Routine Consulting [place] [facility] [place] [facility] Reason for consultation: left femoral neck fracture Has provider been notified: No DS: Diagnosis Discharge Diagnosis (1) Closed fracture of neck of left femur: Status: Acute DS: Summary Hospital Course Hospital Course: Possible mechanical fall in a pt with advanced parkinsons dx s/p ORIF on 11/25/24 pt is an 84 yo new to the hosp with PMH of known Parkinsons dementia,mobility and autonomic dysfunction who sustained a presumed mechanical fall 2/2 baseline medical and psych conditions and sustained a L femoral neck # s/p ORIF on 11/25/24 Pain control with Tylenol, oxycodone, lidocaine patch Was monitored on DVT prophylaxis with Aspirin 325 BID per ortho recs need to continue for another 43 days to complete 1.5 months of total DVT prophylaxis Weight-bearing as tolerated on left leg per surgery recommendations and PT recommendations Advanced parkinsons dx - cont home meds- Carbidopa/Levodopa Type I mobitz - appears yessenia her baseline Type II IN - Will trend , no rx indicated, GDMT CI given significant soft BP -SBP 80s Chronic Hypotension - likely her new baseline , use prn midodrine , family doesnt want ICU or pressors Autonomic dysfunction - Midodrine prn , FIDEL stockings, trendelenberg prn .DVT with aspirin -45 days Pt at significant risk of delirium , falls and with the intention to go back to [facility] eventually This note is constructed using voice recognition software. While every effort has been made to ensure accuracy, pre planning advisor errors may have been included. Time spent discussing smoking cessation with patient: more than 10 minutes Time Attestation Discharge Coordination Time (in mins): 35 Quality: Safe Use of Opioids Does Pt have an Active Cancer Diagnosis on the Problem List?: No Quality: Stroke Does the patient have a stroke diagnosis?: No Physical Exam Vital Signs: Vital Signs: Last Vital Signs Temp 97.2 F 11/27/24 11:25 Pulse 58 11/27/24 11:25 Resp 18 11/27/24 11:25 BP 97/57 L 11/27/24 11:25 Pulse Ox 96 11/27/24 11:25 O2 Del Method Room Air 11/27/24 11:25 O2 Flow Rate 1 11/26/24 03:51 BMI result Body Mass Index 27.4 DS: Data Data Completed and Pending Pending studies at discharge: Pending at discharge 11/25/24 09:02 Surgical [PTH] Routine Labs on day of discharge: Laboratory Results - last 24 hr 11/27/24 11/27/24 03:31 06:16 WBC 10.3 RBC 3.21 L Hgb 10.0 L Hct 29.7 L MCV 92.5 MCH 31.2 MCHC 33.7 RDW 13.1 Plt Count 149 L MPV 9.8 Immature Gran % (Auto) 0.5 H Neut % (Auto) 73.6 H Lymph % (Auto) 11.8 L [place] % (Auto) 10.5 Eos % (Auto) 3.0 Baso % (Auto) 0.6 Lymph # (Auto) 1.2 [place] # (Auto) 1.1 Eos # (Auto) 0.3 Baso # (Auto) 0.1 Abs Immat Gran (auto) 0.05 H Absolute Neuts (auto) 7.6 Absolute Nucleated RBC 0.000 Nucleated RBC % (auto) 0.0 Sodium 139 Potassium 3.6 Chloride 105 Carbon Dioxide 29 Anion Gap 9 L BUN 15 Creatinine 0.64 Estim Creat Clear Calc 66.1 Estimated GFR > 60 Fasting Glucose 106 H Calcium 8.0 L Urine Color Yellow Urine Appearance Clear Urine pH 6.0 Ur Specific [place] 1.010 Urine Protein Negative Urine Glucose (UA) Negative Urine Ketones 15 Urine Blood Negative Urine Nitrite Negative Ur Leukocyte Esterase Trace H Urine RBC 0-2 Urine WBC 0-5 Ur Squamous Epith Cells 0-2 Urine Bacteria None Seen Hyaline Casts 0-2 Discharge Plan Discharge Anticipated Discharge Date/Time: 11/27/24 14:32 Patient Disposition: Home, Self-Care Discharge Diagnosis: Possible mechanical fall in a pt with advanced parkinsons dx s/p ORIF on 11/25/24 Referrals: Ingrid Long [facility] [Outside] - 1 Week Pancho Richards MD [Primary Care Provider, Internal Medicine] - 1 Week Discharge Medications: New polyethylene glycol 3350 17 gram Powder In Packet 17 g PO DAILY PRN (Reason: Constipation) Qty: 100 0RF aspirin 325 mg Tablet 325 mg PO BID 43 Days Qty: 86 0RF Antacid Ext Str (calcium carb) 300 mg (750 mg) Tablet,Chewable 2.5 tab PO Q4H PRN (Reason: Heartburn) 30 Days Qty: 30 0RF magnesium hydroxide [Milk of Magnesia] 400 mg/5 mL Suspension 30 ml PO DAILY PRN (Reason: Constipation) 30 Days Qty: 30 0RF docusate sodium 100 mg Capsule 100 mg PO BID 30 Days Qty: 60 0RF Continued carbidopa-levodopa 25-100 mg tablet 1 tab PO TID escitalopram oxalate 20 mg tablet 20 mg PO DAILY bw-qml-HT-Qg-Gd-wjosgxw-lutein 0.4-162-18 mg Tablet 1 tab PO DAILY pravastatin 20 mg tablet 20 mg PO BEDTIME Discharge Orders: Discharge Order (Routine); Ordered 11/27/24 Ordered By: Jing Hernandez Diet: Low salt diet Activity on Discharge: Please follow orthopedic recommendations, weight-bearing as tolerated on le Stand Alone Forms: Patient Portal Discharge page Print Language: Kittitian Care Plan Goals: Rehab, PT OT, weight-bearing as tolerated, Health Concerns: Follow-up Plan of Treatment: Follow up Assessment: Follow-up
[2024-11-27 15:01] VITALS: BP 110/65; PULSE 60; RESP 14; TEMP 36.7; O2SAT 97
--- NOTE | 2024-11-27 15:32 | MHC.CM.PN ---
PT MEDICALLY CLEARED FOR DC TO [facility], CM CONTACTED PT'S SON/ALT HCP KERRI [phone] WHO [facility].
--- NOTE | 2024-11-29 11:33 | P.OP_ITS ---
Operative Note Operative Note Date of Service: 11/25/24 Narrative: Date of Service: 11/25/24 Pre-op diagnosis: left fem neck fx Post-op diagnosis: same Procedure: left hip maurice Implants: Jac AccoladeC #[id number] with -3/45 bipolar Surgeon: Bertrand Santana MD Anesthesia: GETA and local Was an Blow Pit Helper used for this Procedure?: Yes Blow Pit Helper: Fer Diaz Estimated blood loss (mL): 200 IV fluids (mL): 750 Urine output (mL): 200 Pathology: other Condition: stable Disposition: PACU Procedure in detail: Patient was brought to the operative room placed in the lateral decubitus position. All bony prominences were well padded and the was prepped and draped in standard sterile fashion. IV antibiotics per weight were administered and a time-out was called to identify proper site proper procedure proper surgeon. Radiographs were available and confirmed. I began by making a curvilinear incision over the posterolateral aspect of the greater trochanter. Dissection was taken down to the tensor fascia which was incised in line with the incision and a Charnley retractor was placed. The hip was internally rotated and the external rotators were identified. All vessels in the area were cauterized and a full-thickness capsular/external rotator layer was developed in a hockey-stick fashion starting just distal to the piriformis. The posterior soft tissues were protected at all times. The capsular layer was tagged and the displaced femoral neck fracture was identified. Clean-up cuts was performed while protecting the posterolateral soft tissues and the head was removed and measured (45 mm) on the back table. I then copiously irrigated the acetabulum and removed all bony fragments. Once this was done I used a cookie cutter to lateralize and a Charcandiceey awl to identify the canal and then sequentially broached up to a 127 deg #5. I then trialed with a standard head and a bipolar component matching the femoral head size. I was satisfied with the range of motion and stability and length. Therefore I removed all instrumentation and copiously irrigated. I prepared 2 bags of Simplex bone cement on the back table using 3rd gen technique. A restrictor and centralizer were placed and the canal was then filled with cement and the stem was cemented in place while aplplying axiial compression. Once the cement was dry all excess cement was removed. I then trialed a bipolar. I was satisfied with the-3/45 bipolar implant. The implants were stable. My final bipolar components were then placed. I closed the capsular layer with FiberWire. I performed a layered closure with tresa on skin. The patient was placed in sterile dressing extubated brought to recovery room in stable condition there were no known complications.
== END 2024-11-27 16:52 | disposition skilled nursing facility (03) | DRG 521 ==
LOC: HO.ED 11:07 → HO.EDOVER 11:45 → HO.S3 13:49 → HO.IMC 11-25 14:47
PROVIDERS: Internal Medicine; Orthopaedic Surgery; Registered Nurse Emergency; Admitting Provider Physician Assistant Medical; Emergency Provider Emergency Medicine; PCP Internal Medicine; Visit Provider Student in an Organized Health Care Education/Training Program
PROC: 0SRS0J9 Replacement of Left Hip Joint, Femoral Surface with Synthetic Substitute, Cemented, Open Approach (ICD-10-PCS; principal; 2024-11-25 07:30)
DX: S72.002A Fracture of unspecified part of neck of left femur, initial encounter for closed fracture (principal); I21.A1 Myocardial infarction type 2; W19.XXXA Unspecified fall, initial encounter; G20.A1 Parkinson's disease without dyskinesia, without mention of fluctuations; I95.89 Other hypotension; G90.9 Disorder of the autonomic nervous system, unspecified; I10 Essential (primary) hypertension; I44.1 Atrioventricular block, second degree; F39 Unspecified mood [affective] disorder; Z20.822 Contact with and (suspected) exposure to COVID-19; Z87.891 Personal history of nicotine dependence; Z79.899 Other long term (current) drug therapy
CPT/HCPCS: 36415; 70450; 71045; 72125; 72170; 73502; 80048; 80053; 80076; 81001; 81003; 83735; 84443; 84484; 85025; 86850; 86900; 86901; 87502; 87635; 88305; 88311; 93005; 97161; 97166; 97530; 99285; C1776; C9088; J0131; J0165; J0690; J2003; J2270; J2405; J2704; J2795; J3010; J3360; J7120

== ENCOUNTER → 2024-11-24 08:36 | Outpatient (BNV) | payer MEDICARE, OTHER, SELFPAY | PROVIDERS: Emergency Provider Emergency Medicine; PCP Internal Medicine; Visit Provider Radiology Diagnostic Radiology | DX: M54.2 Cervicalgia (principal); S09.90XA Unspecified injury of head, initial encounter; M47.812 Spondylosis without myelopathy or radiculopathy, cervical region; E04.1 Nontoxic single thyroid nodule; S72.002A Fracture of unspecified part of neck of left femur, initial encounter for closed fracture; W19.XXXA Unspecified fall, initial encounter | CPT/HCPCS: 70450; 71045; 72125 ==

== ENCOUNTER → 2024-11-24 08:36 | Outpatient (BNV) | payer MEDICARE, OTHER, SELFPAY | PROVIDERS: Admitting Provider Physician Assistant Medical; Emergency Provider Emergency Medicine; PCP Internal Medicine; Visit Provider Internal Medicine | DX: I49.1 Atrial premature depolarization (principal) | CPT/HCPCS: 93010 ==

== ENCOUNTER 2024-11-24 11:15 | Outpatient (BNV) | payer MEDICARE, OTHER, SELFPAY | END 2024-11-25 13:11 | PROVIDERS: Admitting Provider Physician Assistant Medical; Emergency Provider Emergency Medicine; PCP Internal Medicine; Visit Provider Internal Medicine | DX: I44.1 Atrioventricular block, second degree (principal) | CPT/HCPCS: 93010 ==

== ENCOUNTER 2024-11-24 11:15 | Outpatient (BNV) | payer MEDICARE, OTHER, SELFPAY | END 2024-11-25 12:58 | PROVIDERS: Admitting Provider Physician Assistant Medical; Emergency Provider Emergency Medicine; PCP Internal Medicine; Visit Provider Radiology Diagnostic Radiology | DX: S72.002A Fracture of unspecified part of neck of left femur, initial encounter for closed fracture (principal); Z96.642 Presence of left artificial hip joint | CPT/HCPCS: 72170 ==

== ENCOUNTER → 2024-11-24 11:15 | Outpatient (BNV) | payer MEDICARE, OTHER, SELFPAY | PROVIDERS: Admitting Provider Physician Assistant Medical; Emergency Provider Emergency Medicine; PCP Internal Medicine; Visit Provider Physician Assistant Medical | DX: S72.002A Fracture of unspecified part of neck of left femur, initial encounter for closed fracture (principal) | CPT/HCPCS: 99223; 99232; 99239; 99497 ==

== ENCOUNTER → 2024-11-24 11:15 | Outpatient (BNV) | payer MEDICARE, OTHER, SELFPAY | PROVIDERS: Admitting Provider Physician Assistant Medical; Emergency Provider Emergency Medicine; PCP Internal Medicine | DX: Z96.642 Presence of left artificial hip joint (principal) | CPT/HCPCS: 27236; 99024; 99223 ==

== ENCOUNTER 2024-12-15 10:51 | Outpatient (REF) | payer MEDICARE, OTHER, SELFPAY ==
--- NOTE | ~2024-12-15 | XR_ITS ---
EXAMINATION: XR HIP 2 OR MORE VIEWS LEFT HISTORY: M25.552 - Pain in left hip COMPARISON: Comparison is made with the prior examination dated 11/24/2024. FINDINGS: A single AP view of the pelvis and two views of the left hip are submitted. The patient is status post total hip arthroplasty. The orthopedic elements are in anatomic alignment. There is no fracture or dislocation. The soft tissues are unremarkable. XR/XR hip LT min 2V IMPRESSION: Status post left total hip arthroplasty. Electronically signed by: Feliberto Houston MD 12/15/2024 02:37 PM EDT
== END 2024-12-15 10:52 | disposition home or self-care (01) ==
LOC: HO.HOSX 10:51
PROVIDERS: Visit Provider Physician Assistant
DX: Z96.642 Presence of left artificial hip joint (principal); Z47.1 Aftercare following joint replacement surgery
CPT/HCPCS: 73502; 99212

== ENCOUNTER 2024-12-15 13:55 | Outpatient (AMB) | payer MEDICARE, OTHER, SELFPAY ==
--- NOTE | 2024-12-15 14:09 | A.OFFVIS_ITS ---
Intake Visit Reasons: PO-2 week LT LT hip hemiarthroplasty 11/25/2024 Intake Note: Toshia is an 84 year old female who presents today for a post operative visit after undergoing a left hip hemiarthroplasty, performed by Dr. Santana on 11/25/24. Patient reports she is doing well, states not much pain. Currently resides at [facility]. Allergies No Known Allergies Allergy (Verified 12/15/24 14:11) Medication List - Last Reconciled 12/15/24 by Gabrielle Salazar PA-C aspirin 325 mg PO BID 43 days calcium carbonate (Antacid Ext Str (calcium carb)) 2.5 tabs PO Q4H PRN 30 days carbidopa-levodopa 25-100 mg 1 tab PO TID docusate sodium 100 mg PO BID 30 days escitalopram oxalate 20 mg PO DAILY magnesium hydroxide (Milk of Magnesia) 30 mL PO DAILY PRN 30 days ak-mua-TK-Qn-Ay-bfviddy-lutein 0.4-162-18 mg 1 tab PO DAILY polyethylene glycol 3350 17 grams PO DAILY PRN pravastatin 20 mg PO BEDTIME trazodone 25 mg PO BEDTIME PRN HPI HPI PO-2 week LT LT hip hemiarthroplasty 11/25/2024: Details: 84 yo female presents to the office today s/p Lt hip hemiarthroplasty 11/25/[address] Santana. She is currently in a STR facility and looking to transition to an assisted living facility in the near future. She is working with PT/OT, she is ambulating with a cane and walker as needed and progressing well. She denies pain and has no concerns today. ON LICENSE OF [facility] Medical History (Updated 12/05/24 @ 00:00 by Annemarie Cordon) HLD (hyperlipidemia) Parkinsons disease Social History Household Members: [facility] Do you presently have visiting nurse or other home services: No Comment: son in room Patient Tobacco Use Status: Former Tobacco user service: No Review of Systems Const All systems reviewed & are unremarkable except as noted in HPI and below Physical Exam Extrem Other: Left hip incision clean, dry and intact. No pain with ROM of the hip or with hip flexion. Calf is supple, non tender. NVI. Results Reviewed Results Reviewed: Xrays were obtained in the office today and personally reviewed by me of the left hip show intact prosthesis Assessment & Plan Assessment & Plan (1) Status post hemiarthroplasty of left hip: Code(s): Z96.642 - Presence of left artificial hip joint Category: Surgical Plan: [place] removed today, steri stips applied. She will continue working with PT and OT for gait training and strengthening, continue with posterior hip precautions . She will increase activities as tolerated and see me back in 4 weeks, sooner if needed. Orders: Orders XR hip LT min 2V Today M25.552 - Pain in left hip Coding Level of Care Code Global (89993) Diagnoses Status post hemiarthroplasty of left hip Z96.642
== END 2024-12-15 15:04 | disposition home or self-care (01) ==
LOC: HO.HOS 13:56
PROVIDERS: PCP Internal Medicine; Visit Provider Physician Assistant
DX: Z96.642 Presence of left artificial hip joint (principal)
CPT/HCPCS: 99024

== ENCOUNTER → 2024-12-15 13:58 | Outpatient (BNV) | payer MEDICARE, OTHER, SELFPAY | PROVIDERS: Visit Provider Radiology Diagnostic Radiology | DX: M25.552 Pain in left hip (principal) | CPT/HCPCS: 73502 ==

== ENCOUNTER 2025-01-12 08:17 | Outpatient (REF) | payer MEDICARE, OTHER, SELFPAY ==
--- NOTE | ~2025-01-12 | XR_ITS ---
EXAMINATION: XR HIP, LEFT CLINICAL INFORMATION: M25.552 - Pain in left hip COMPARISON: 12/15/2024 and 11/24/2024 TECHNIQUE: AP pelvis, AP supine, and frog-leg lateral views of the left hip. FINDINGS: There is diffuse osteopenia. Skin tresa lateral to the left hip have been removed. Left total hip arthroplasty components appear stable. The femoral stem is cemented. No periprosthetic fracture is identified. XR/XR hip LT min 2V IMPRESSION: Stable left hip arthroplasty. Osteopenia. Electronically signed by: Guzman Kinney MD 01/12/2025 01:07 PM [facility]
== END 2025-01-12 08:18 | disposition home or self-care (01) ==
LOC: HO.HOSX 08:17
PROVIDERS: Visit Provider Physician Assistant
DX: M25.552 Pain in left hip (principal); Z96.642 Presence of left artificial hip joint
CPT/HCPCS: 73502; 99212

== ENCOUNTER → 2025-01-12 12:54 | Outpatient (BNV) | payer MEDICARE, OTHER, SELFPAY | PROVIDERS: Visit Provider Radiology Diagnostic Radiology | DX: M85.88 Other specified disorders of bone density and structure, other site (principal); Z96.642 Presence of left artificial hip joint | CPT/HCPCS: 73502 ==

== ENCOUNTER 2025-01-12 12:56 | Outpatient (AMB) | payer MEDICARE, OTHER, SELFPAY ==
--- NOTE | 2025-01-12 13:07 | A.OFFVIS_ITS ---
Intake Visit Reasons: PO-f.u Lt hip maurice 11/25/24 Intake Note: Toshia is an 84 year old female who presents today for a post operative visit after undergoing a left hip hemiarthroplasty, performed by Dr. Santana on 11/25/24. At last visit patient was advise to continue working with PT and OT for gait training and strengthening, continue with posterior hip precautions. Today patient reports that she is doing well, states at times she will have an ache. States that she has completed physical therapy. Accompanied by: Son Allergies No Known Allergies Allergy (Verified 01/12/25 13:12) Medication List - Last Reconciled 01/12/25 by Gabrielle Salazar PA-C aspirin 325 mg PO BID 43 days calcium carbonate (Antacid Ext Str (calcium carb)) 2.5 tabs PO Q4H PRN 30 days carbidopa-levodopa 25-100 mg 1 tab PO TID docusate sodium 100 mg PO BID 30 days escitalopram oxalate 20 mg PO DAILY magnesium hydroxide (Milk of Magnesia) 30 mL PO DAILY PRN 30 days xi-nzi-GQ-Gp-Oz-opalhsx-lutein 0.4-162-18 mg 1 tab PO DAILY polyethylene glycol 3350 17 grams PO DAILY PRN pravastatin 20 mg PO BEDTIME trazodone 25 mg PO BEDTIME PRN HPI HPI PO-f.u Lt hip maurice 11/25/24: Details: 84-year-old female returns to the office today status post left hip hemiarthroplasty on 11/2024. The patient has completed physical therapy and is continuing with activities as tolerated. She denies pain or weakness. She has no concerns today. [facility] Medical History (Updated 12/05/24 @ 00:00 by Annemarie Cordon) HLD (hyperlipidemia) Parkinsons disease Social History Household Members: [facility] Do you presently have visiting nurse or other home services: No Comment: son in room Patient Tobacco Use Status: Former Tobacco user service: No Review of Systems Const All systems reviewed & are unremarkable except as noted in HPI and below Physical Exam Extrem Other: Left hip incision well healed. No pain with ROM of the hip or with hip flexion. Calf is supple, non tender. NVI. Results Reviewed Results Reviewed: Xrays were obtained in the office today and personally reviewed by me of the left hip show intact prosthesis Assessment & Plan Assessment & Plan (1) Status post hemiarthroplasty of left hip: Code(s): Z96.642 - Presence of left artificial hip joint Category: Surgical Plan: She will continue with activities as tolerated. I did give her a printout of some home exercises to work on to maintain her strength. She will see me back as needed if there is any questions or concerns. Orders: Orders XR hip LT min 2V Today M25.552 - Pain in left hip Coding Level of Care Code Global (81577) Diagnoses Status post hemiarthroplasty of left hip Z96.642
--- OUTSIDE RECORDS SUMMARY | 2025-02-20 19:00 | XMS_ITS | Clinical Summary ---
Author Organization Unknown Care Team Providers Care Manager Market Development Name Role Phone SELF AIDAN, ALICIA Unavailable Unav ailable QUEVEDO PT, NORA Unavailable Unavailable GILMA MANAGER PRODUCT MARKETING, JONATHAN Unavailable Unavailable [place] OT, JAZMINE Unavailable Unavailable [place]DINO IRRIGATIONIST DESIGNER/CHURCHILL, ELLIOT Unavailable Unav ailable Payers Payer Name Policy Type Policy Number Effective Date Expira tion Date MEDICARE.NGS.PD [id number] Problems Condition Name Condition Details Condition Category Status Onset Date Resolution Date Last Treatment Date Treating Clinician Comments FX UNSP PART OF NK OF L FEMR, SUBS FOR CLOS FX W ROUTN HEAL Active 11-25 00:00: 00 ESSENTIAL (PRIMARY) HYPERTENSION Active 2024-03 00:00: 00 PARKINSON'S DIS W/O DYSKINESIA, 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 2024-03 00:00: 00 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, UNSP SEVERITY, WITH ANXIETY Active 2024-03 00:00: 00 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, UNSP SEV, WITH MOOD DISTRB Active 2024-03 00:00: 00 MAJOR DEPRESSIVE DISORDER, RECURRENT, UNSPECIFIED Active 2024-03 00:00: 00 HYPERLIPIDEM IA, UNSPECIFIED Active 2024-03 00:00: 00 PRESENCE OF LEFT ARTIFICIAL HIP JOINT Active 11-25 00:00: 00 MANAGER APPLIED (CURRENT) USE OF ASPIRIN Active 2024-03 0- 00:00: 00 HISTORY OF FALLING Active 11-20 00:00: 00 Allergies, Adverse Reactions, Alerts Allergy Name Allergy Type Status Severity Reaction(s) Onset Date Inactive Date Treating Clinician Comments NO KNOWN ALLERGIES Propensity to adverse reactions Active 2024-03 13:25: 49 Medications Ordered Medication Name Filled Medication Name Start Date Stop Date Current Medication? Ordering Clinician Indication Dosage Frequency Signature (SIG) Comments Components carbidopa 25 mg-levodopa 100 mg tablet 2024-03 00:00: 00 Yes [id number] PARKINSONS 1 tablet THREE TIMES A DAY 1 tablet THREE TIMES A DAY (route: oral) Med Classific ation: Central Nervous System Agents escitalopra m 20 mg tablet 2024-03 00:00: 00 Yes [id number] PARKINSONS 1 tablet ONCE A DAY 1 tablet ONCE A DAY (route: oral) Med Classific ation: Central Nervous System Agents Antifungal (miconazole ) 2 % topical cream 2024-03 00:00: 00 Yes [id number] RASH Per instruc tions 2 TIMES DAILY Per instructio ns 2 TIMES DAILY (route: topical) Med Classific ation: Dermatolo gical aspirin 325 mg tablet 2024-03 00:00: 00 Yes [id number] DVT 1 tablet 2 TIMES DAILY 1 tablet 2 TIMES DAILY (route: oral) Med Classific ation: Analgesic , Anti-infl ammatory or Antipyret ic bisacodyl 10 mg rectal suppository 2024-03 00:00: 00 Yes [id number] CONSTIPATIO N 1 supposi tory, rectal DAILY 1 suppositor y, rectal DAILY (route: rectal) Med Classific ation: Gastroint estinal Therapy Agents buspirone 5 mg tablet 2024-03 00:00: 00 Yes [id number] ANXIETY 1 tablet DAILY 1 tablet DAILY (route: oral) Med Classific ation: Central Nervous System Agents Calcium Antacid 200 mg (as calcium carbonate 500 mg) chewable tablet 2024-03 00:00: 00 Yes [id number] HEARTBURN 1 tablet EVERY 4 HOURS 1 tablet EVERY 4 HOURS (route: oral) Med Classific ation: Gastroint estinal Therapy Agents Colace 100 mg capsule 2024-03 00:00: 00 Yes [id number] CONSTIPATIO N 1 capsule 2 TIMES DAILY 1 capsule 2 TIMES DAILY (route: oral) Med Classific ation: Gastroint estinal Therapy Agents Daily Multi-Vitam in tablet 2024-03 00:00: 00 Yes [id number] SUPPLEMENT 1 tablet DAILY 1 tablet DAILY (route: oral) Med Classific ation: Electroly te Balance-N utritiona l Products melatonin 3 mg tablet 2024-03 00:00: 00 Yes [id number] INSOMNIA 1 tablet BEDTIME 1 tablet BEDTIME (route: oral) Med Classific ation: Central Nervous System Agents midodrine 2.5 mg tablet 2024-03 00:00: 00 Yes [id number] ORTHOSTATIC HTN 1 tablet DAILY 1 tablet DAILY (route: oral) Med Classific ation: Cardiovas cular Therapy Agents Milk of Magnesia 400 mg/5 mL oral suspension 2024-03 00:00: 00 Yes [id number] CONSTIPATIO N 30 mL DAILY 30 mL DAILY (route: oral) Med Classific ation: Gastroint estinal Therapy Agents Miralax 17 gram/dose oral powder 2024-03 00:00: 00 Yes [id number] CONSTIPATIO N 17 gram DAILY 17 gram DAILY (route: oral) Med Classific ation: Gastroint estinal Therapy Agents ondansetron 4 mg disintegrat ing tablet 2024-03 00:00: 00 Yes [id number] NAUSEA/VOMI TING 1 tablet EVERY 6 HOURS 1 tablet EVERY 6 HOURS (route: oral) Med Classific ation: Gastroint estinal Therapy Agents pravastatin 20 mg tablet 2024-03 00:00: 00 Yes [id number] HYPERLIPIDE YASHIRA 1 tablet BEDTIME 1 tablet BEDTIME (route: oral) Med Classific ation: Cardiovas cular Therapy Agents Tylenol Extra Strength 500 mg tablet 2024-03 00:00: 00 Yes [id number] PAIN 2 tablet 3 TIMES DAILY 2 tablet 3 TIMES DAILY (route: oral) Med Classific ation: Analgesic , Anti-infl ammatory or Antipyret ic Immunizations Ordered Immunization Name Filled Immunization Name Date Status Comments Refusal Reason INFLUENZA, TIV (INACTIVATED) 2024-12-06 00:00:00 Vital Signs Vital Name Observation Time Observation Value Commen ts Temperature 2025-01-12 10:35:00.000 98.1 [degF] Temperature 2025-01-09 09:02:00.000 98.1 [degF] Temperature 2025-01-05 11:42:00.000 97 [degF] Temperature 2025-01-05 07:15:00.000 97.3 [degF] Temperature 2025-01-03 11:14:00.000 98.2 [degF] Temperature 2024-12-28 11:43:00.000 97.4 [degF] Temperature 2024-12-27 11:22:00.000 98.2 [degF] Temperature 2024-12-25 10:22:00.000 97.9 [degF] Temperature 2024-12-24 12:50:00.000 97.7 [degF] BMI (%) 2024-12-24 11:07:06.000 26 kg/m2 Height 2024-12-24 11:06:56.000 64 [in_us] Pulse 2025-01-12 10:35:00.000 84 /min Pulse 2025-01-09 09:02:00.000 77 /min Pulse 2025-01-05 11:42:00.000 70 /min Pulse 2025-01-05 07:15:00.000 74 /min Pulse 2025-01-03 11:14:00.000 69 /min Pulse 2024-12-28 11:43:00.000 76 /min Pulse 2024-12-27 11:22:00.000 60 /min Pulse 2024-12-25 10:22:00.000 75 /min Pulse 2024-12-24 12:50:00.000 78 /min O2 Saturation (%) 2025-01-12 10:35:00.000 97 % O2 Saturation (%) 2025-01-05 07:16:00.000 97 % O2 Saturation (%) 2024-12-25 10:22:00.000 97 % O2 Saturation (%) 2024-12-24 12:50:00.000 98 % Respirations 2025-01-12 10:35:00.000 18 /min Respirations 2025-01-09 09:02:00.000 18 /min Respirations 2025-01-05 11:42:00.000 18 /min Respirations 2025-01-05 07:15:00.000 18 /min Respirations 2025-01-03 11:14:00.000 18 /min Respirations 2024-12-28 11:43:00.000 18 /min Respirations 2024-12-27 11:33:00.000 17 /min Respirations 2024-12-27 11:22:00.000 18 /min Respirations 2024-12-25 10:22:00.000 18 /min Respirations 2024-12-24 12:50:00.000 18 /min Weight (lbs) 2024-12-24 11:07:06.000 156 [lb_av] Systolic Blood Pressure 2025-01-12 10:35:00.000 118 mm [Hg] Systolic Blood Pressure 2025-01-09 09:02:00.000 130 mm [Hg] Systolic Blood Pressure 2025-01-05 11:42:00.000 138 mm [Hg] Systolic Blood Pressure 2025-01-05 07:15:00.000 116 mm [Hg] Systolic Blood Pressure 2025-01-03 11:14:00.000 118 mm [Hg] Systolic Blood Pressure 2024-12-28 11:43:00.000 132 mm [Hg] Systolic Blood Pressure 2024-12-27 11:22:00.000 142 mm [Hg] Systolic Blood Pressure 2024-12-25 10:22:00.000 132 mm [Hg] Systolic Blood Pressure 2024-12-24 12:50:00.000 134 mm [Hg] Diastolic Blood Pressure 2025-01-12 10:35:00.000 78 mm [Hg] Diastolic Blood Pressure 2025-01-09 09:02:00.000 70 mm [Hg] Diastolic Blood Pressure 2025-01-05 11:42:00.000 72 mm [Hg] Diastolic Blood Pressure 2025-01-05 07:15:00.000 68 mm [Hg] Diastolic Blood Pressure 2025-01-03 11:14:00.000 72 mm [Hg] Diastolic Blood Pressure 2024-12-28 11:43:00.000 78 mm [Hg] Diastolic Blood Pressure 2024-12-27 11:22:00.000 81 mm [Hg] Diastolic Blood Pressure 2024-12-25 10:22:00.000 82 mm [Hg] Diastolic Blood Pressure 2024-12-24 12:50:00.000 86 mm [Hg] Plan of Treatment Planned Activity Planned Date Details Comments Future Scheduled Test RN TO OBSE RVE, ASSESS, EVALUATE, AND DEVELOP AN INDIVIDUALIZED PLAN OF CARE. AGENCY MAY ACCEPT ORDERS FROM CONSULTING PHYSICIANS RN TO OBSERVE AND ASSESS, COIN PURSE ASSEMBLER/PRECINCT I POLICE SERGEANT TO OBSERVE FOR RISK FOR FALLS AND INSTRUCT IN FALL PREVENTION, HOME SAFETY, MEDICATION MANAGEMENT, INFECTION PREVENTION, AND NUTRITION MANAGEMENT. RN/COIN PURSE ASSEMBLER/PRECINCT I POLICE SERGEANT NURSE MAY PERFORM O2 SATURATION LEVEL ON ADMISSION AND PRN FOR SOB FOR RN TO ASSESS/COIN PURSE ASSEMBLER TO OBSERVE PATIENT, WITH NOTIFICATION TO THE PHYSICIAN IF SATURATION IS 90% IN THE ABSENCE OF MORE SPECIFIC PARAMETERS FROM THE PHYSICIAN. AGENCY MAY PERFORM A RESUMPTION OF CARE VISIT FOLLOWING ANY HOSPITAL ADMISSION. RN/COIN PURSE ASSEMBLER/PRECINCT I POLICE SERGEANT TO MONITOR CO-MORBID CONDITIONS LISTED ON THE PLAN OF CARE AND ANY NEW CONDITIONS THAT PRESENT THEMSELVES DURING THIS EPISODE TO IDENTIFY CHANGES AND INTERVENE TO MINIMIZE COMPLICATIONS. [code = RN TO OBSERVE, ASSESS, EVALUATE, AND DEVELOP AN INDIVIDUALIZED PLAN OF CARE. AGENCY MAY ACCEPT ORDERS FROM CONSULTING PHYSICIANS RN TO OBSERVE AND ASSESS, COIN PURSE ASSEMBLER/PRECINCT I POLICE SERGEANT TO OBSERVE FOR RISK FOR FALLS AND INSTRUCT IN FALL PREVENTION, HOME SAFETY, MEDICATION MANAGEMENT, INFECTION PREVENTION, AND NUTRITION MANAGEMENT. RN/COIN PURSE ASSEMBLER/PRECINCT I POLICE SERGEANT NURSE MAY PERFORM O2 SATURATION LEVEL ON ADMISSION AND PRN FOR SOB FOR RN TO ASSESS/COIN PURSE ASSEMBLER TO OBSERVE PATIENT, WITH NOTIFICATION TO THE PHYSICIAN IF SATURATION IS 90% IN THE ABSENCE OF MORE SPECIFIC PARAMETERS FROM THE PHYSICIAN. AGENCY MAY PERFORM A RESUMPTION OF CARE VISIT FOLLOWING ANY HOSPITAL ADMISSION. RN/COIN PURSE ASSEMBLER/PRECINCT I POLICE SERGEANT TO MONITOR CO-MORBID CONDITIONS LISTED ON THE PLAN OF CARE AND ANY NEW CONDITIONS THAT PRESENT THEMSELVES DURING THIS EPISODE TO IDENTIFY CHANGES AND INTERVENE TO MINIMIZE COMPLICATIONS.] Future Scheduled Test RISK FOR H OSPITALIZATION; RN TO ASSESS/TEACH, PRECINCT I POLICE SERGEANT/COIN PURSE ASSEMBLER TO OBSERVE/TEACH PATIENT/CAREGIVER ON RISK FOR HOSPITALIZATION/EMERGENCY ROOM VISITS, TEACH SIGNS AND SYMPTOMS THAT PUT PATIENT AT RISK, WHEN TO NOTIFY NURSE/PHYSICIAN OF COMPLICATIONS/DECLINE, AND WHEN TO CALL 911. [code = RISK FOR HOSPITALIZATION; RN TO ASSESS/TEACH, PRECINCT I POLICE SERGEANT/COIN PURSE ASSEMBLER TO OBSERVE/TEACH PATIENT/CAREGIVER ON RISK FOR HOSPITALIZATION/EMERGENCY ROOM VISITS, TEACH SIGNS AND SYMPTOMS THAT PUT PATIENT AT RISK, WHEN TO NOTIFY NURSE/PHYSICIAN OF COMPLICATIONS/DECLINE, AND WHEN TO CALL 911.] Future Scheduled Test MEDICATION MANAGEMENT; RN/COIN PURSE ASSEMBLER/PRECINCT I POLICE SERGEANT TO REVIEW MEDICATIONS FOR INTERACTIONS, EFFECTIVENESS OF DRUG THERAPY, AND SIGNS/SYMPTOMS OF ADVERSE REACTIONS. MAY INSTRUCT AND REINFORCE MEDICATION TEACHING RELATED TO THE USE OF MEDICATIONS, DOSAGE, FREQUENCY, PURPOSE, SIDE EFFECTS, AND TO REPORT COMPLICATIONS. [code = MEDICATION MANAGEMENT; RN/COIN PURSE ASSEMBLER/PRECINCT I POLICE SERGEANT TO REVIEW MEDICATIONS FOR INTERACTIONS, EFFECTIVENESS OF DRUG THERAPY, AND SIGNS/SYMPTOMS OF ADVERSE REACTIONS. MAY INSTRUCT AND REINFORCE MEDICATION TEACHING RELATED TO THE USE OF MEDICATIONS, DOSAGE, FREQUENCY, PURPOSE, SIDE EFFECTS, AND TO REPORT COMPLICATIONS.] Future Scheduled Test CARDIOVASC ULAR SYSTEM; RN TO ASSESS/TEACH, COIN PURSE ASSEMBLER/PRECINCT I POLICE SERGEANT TO OBSERVE/TEACH RELATED TO ALTERED CARDIOVASCULAR STATUS TO MINIMIZE COMPLICATIONS AND REDUCE HOSPITALIZATION. [code = CARDIOVASCULAR SYSTEM; RN TO ASSESS/TEACH, COIN PURSE ASSEMBLER/PRECINCT I POLICE SERGEANT TO OBSERVE/TEACH RELATED TO ALTERED CARDIOVASCULAR STATUS TO MINIMIZE COMPLICATIONS AND REDUCE HOSPITALIZATION.] Future Scheduled Test RN TO ASSE SS/TEACH, COIN PURSE ASSEMBLER,PRECINCT I POLICE SERGEANT TO OBSERVE AND TEACH MEASURES FOR SELF-MANAGEMENT POST A SURGICAL HIP REPLACEMENT OR FEMUR FRACTURE TO MINIMIZE COMPLICATIONS AND REDUCE RISK OF HOSPITALIZATION. [code = RN TO ASSESS/TEACH, COIN PURSE ASSEMBLER,PRECINCT I POLICE SERGEANT TO OBSERVE AND TEACH MEASURES FOR SELF-MANAGEMENT POST A SURGICAL HIP REPLACEMENT OR FEMUR FRACTURE TO MINIMIZE COMPLICATIONS AND REDUCE RISK OF HOSPITALIZATION.] Future Scheduled Test PAIN MANAG EMENT; RN TO ASSESS AND TEACH, PRECINCT I POLICE SERGEANT/COIN PURSE ASSEMBLER TO OBSERVE AND TEACH AND PROVIDE EDUCATION ON PAIN MANAGEMENT TECHNIQUES [code = PAIN MANAGEMENT; RN TO ASSESS AND TEACH, PRECINCT I POLICE SERGEANT/COIN PURSE ASSEMBLER TO OBSERVE AND TEACH AND PROVIDE EDUCATION ON PAIN MANAGEMENT TECHNIQUES] Future Scheduled Test DEMENTIA M ANAGEMENT WITHOUT BEHAVIORAL DISTURBANCES; RN TO ASSESS AND TEACH, PRECINCT I POLICE SERGEANT/COIN PURSE ASSEMBLER TO OBSERVE AND TEACH AND TO PROVIDE EDUCATION ON DEMENTIA WITHOUT BEHAVIORAL DISTURBANCES. [code = DEMENTIA MANAGEMENT WITHOUT BEHAVIORAL DISTURBANCES; RN TO ASSESS AND TEACH, PRECINCT I POLICE SERGEANT/COIN PURSE ASSEMBLER TO OBSERVE AND TEACH AND TO PROVIDE EDUCATION ON DEMENTIA WITHOUT BEHAVIORAL DISTURBANCES.] Future Scheduled Test FALL REDUC TION MANAGEMENT; RN TO ASSESS AND OBSERVE, COIN PURSE ASSEMBLER/PRECINCT I POLICE SERGEANT TO OBSERVE FALL RISK FACTORS AND EDUCATE PATIENT/CAREGIVER ON STRATEGIES TO MINIMIZE THE RISK OF FALLING. [code = FALL REDUCTION MANAGEMENT; RN TO ASSESS AND OBSERVE, COIN PURSE ASSEMBLER/PRECINCT I POLICE SERGEANT TO OBSERVE FALL RISK FACTORS AND EDUCATE PATIENT/CAREGIVER ON STRATEGIES TO MINIMIZE THE RISK OF FALLING.] Future Scheduled Test AGENCY MAY PERFORM A RESUMPTION OF CARE VISIT FOLLOWING ANY HOSPITAL ADMISSION. PT TO EVALUATE, OBSERVE / ASSESS, AND MONITOR, MANAGER PRODUCT MARKETING TO OBSERVE AND MONITOR, PROVIDE SKILLED THERAPEUTIC INTERVENTION, ACTIVITY, EDUCATION, AND TRAINING TO ADDRESS; PT/MANAGER PRODUCT MARKETING TO PROVIDE GAIT TRAINING FOR IMPROVED MOBILITY AND /OR TO NORMALIZE GAIT PATTERN NEUROMUSCULAR RE-EDUCATION / BALANCE / POSTURAL CONTROL (PT) THERAPEUTIC EXERCISES AND ESTABLISHING A HOME EXERCISE PROGRAM (PT/MANAGER PRODUCT MARKETING) BED TRANSFERS (PT/MANAGER PRODUCT MARKETING) SIT TO/FROM STAND TRANSFERS (PT/MANAGER PRODUCT MARKETING) PT/MANAGER PRODUCT MARKETING TO EDUCATE ON FEMUR FRACTURE /ORIF SELF-MANAGEMENT. PT/MANAGER PRODUCT MARKETING TO IDENTIFY FALL RISK FACTORS; EDUCATE THE PATIENT/CAREGIVER ON WAYS TO REDUCE FALL RISK FACTORS AND ESTABLISH HOME EXERCISE PROGRAM TO MINIMIZE FALL RISK. MAY TEACH THE PATIENT FLOOR RECOVERY WHEN CLINICALLY APPROPRIATE PT / MANAGER PRODUCT MARKETING TO MONITOR AND EDUCATE ON OXYGEN SATURATION DURING ADLS/IADLS, NOTIFY PHYSICIAN AND/OR THE RN CLINICAL AIR TWISTER WINDER FOR PHYSICIAN NOTIFICATION AND IF O2 SATS BELOW PHYSICIAN ORDERED PARAMETERS AFTER 10 MIN OF REST PT / MANAGER PRODUCT MARKETING MAY EDUCATE ON PAIN MANAGEMENT CLINICALLY INDICATED, INCLUDING NON-PHARMACOLOGICAL PAIN REDUCTION TECHNIQUES. [code = AGENCY MAY PERFORM A RESUMPTION OF CARE VISIT FOLLOWING ANY HOSPITAL ADMISSION. PT TO EVALUATE, OBSERVE / ASSESS, AND MONITOR, MANAGER PRODUCT MARKETING TO OBSERVE AND MONITOR, PROVIDE SKILLED THERAPEUTIC INTERVENTION, ACTIVITY, EDUCATION, AND TRAINING TO ADDRESS; PT/MANAGER PRODUCT MARKETING TO PROVIDE GAIT TRAINING FOR IMPROVED MOBILITY AND /OR TO NORMALIZE GAIT PATTERN NEUROMUSCULAR RE-EDUCATION / BALANCE / POSTURAL CONTROL (PT) THERAPEUTIC EXERCISES AND ESTABLISHING A HOME EXERCISE PROGRAM (PT/MANAGER PRODUCT MARKETING) BED TRANSFERS (PT/MANAGER PRODUCT MARKETING) SIT TO/FROM STAND TRANSFERS (PT/MANAGER PRODUCT MARKETING) PT/MANAGER PRODUCT MARKETING TO EDUCATE ON FEMUR FRACTURE /ORIF SELF-MANAGEMENT. PT/MANAGER PRODUCT MARKETING TO IDENTIFY FALL RISK FACTORS; EDUCATE THE PATIENT/CAREGIVER ON WAYS TO REDUCE FALL RISK FACTORS AND ESTABLISH HOME EXERCISE PROGRAM TO MINIMIZE FALL RISK. MAY TEACH THE PATIENT FLOOR RECOVERY WHEN CLINICALLY APPROPRIATE PT / MANAGER PRODUCT MARKETING TO MONITOR AND EDUCATE ON OXYGEN SATURATION DURING ADLS/IADLS, NOTIFY PHYSICIAN AND/OR THE RN CLINICAL AIR TWISTER WINDER FOR PHYSICIAN NOTIFICATION AND IF O2 SATS BELOW PHYSICIAN ORDERED PARAMETERS AFTER 10 MIN OF REST PT / MANAGER PRODUCT MARKETING MAY EDUCATE ON PAIN MANAGEMENT CLINICALLY INDICATED, INCLUDING NON-PHARMACOLOGICAL PAIN REDUCTION TECHNIQUES.] Future Scheduled Test AGENCY MAY PERFORM A RESUMPTION OF CARE VISIT FOLLOWING ANY HOSPITAL ADMISSION. OT TO EVALUATE, OBSERVE / ASSESS, AND MONITOR, IRRIGATIONIST DESIGNER TO OBSERVE AND MONITOR, PROVIDE SKILLED THERAPEUTIC INTERVENTION, ACTIVITY, EDUCATION, AND TRAINING TO ADDRESS; PERSONAL HYGIENE/GROOMING (OT/IRRIGATIONIST DESIGNER) BATHING/SHOWERING (OT/IRRIGATIONIST DESIGNER) DRESSING (OT/IRRIGATIONIST DESIGNER) ACTIVITIES OF DAILY LIVING (OT/IRRIGATIONIST DESIGNER) POSTURAL CONTROL/BALANCE (OT/SIXTO) OT/IRRIGATIONIST DESIGNER TO MONITOR AND EDUCATE ON OXYGEN SATURATION DURING ADLS/IADLS, NOTIFY PHYSICIAN AND/OR THE RN CLINICAL AIR TWISTER WINDER FOR PHYSICIAN NOTIFICATION AND IF O2 SATS BELOW 90% AFTER 10 MIN OF REST. OT/SIXTO MAY EDUCATE ON PAIN MANAGEMENT CLINICALLY INDICATED, INCLUDING NON-PHARMACOLOGICAL PAIN REDUCTION TECHNIQUES OT / IRRIGATIONIST DESIGNER TO IDENTIFY FALL RISK FACTORS; EDUCATE THE PATIENT/CAREGIVER ON WAYS TO REDUCE FALL RISK FACTORS AND ESTABLISH HOME EXERCISE PROGRAM TO MINIMIZE FALL RISK. MAY TEACH THE PATIENT FLOOR RECOVERY WHEN CLINICALLY APPROPRIATE. OT/IRRIGATIONIST DESIGNER TO TEACH HIP REPLACEMENT ( HEMIARTHROPLASTY )SELF-MANAGEMENT [code = AGENCY MAY PERFORM A RESUMPTION OF CARE VISIT FOLLOWING ANY HOSPITAL ADMISSION. OT TO EVALUATE, OBSERVE / ASSESS, AND MONITOR, IRRIGATIONIST DESIGNER TO OBSERVE AND MONITOR, PROVIDE SKILLED THERAPEUTIC INTERVENTION, ACTIVITY, EDUCATION, AND TRAINING TO ADDRESS; PERSONAL HYGIENE/GROOMING (OT/IRRIGATIONIST DESIGNER) BATHING/SHOWERING (OT/SIXTO) DRESSING (OT/SIXTO) ACTIVITIES OF DAILY LIVING (OT/SIXTO) POSTURAL CONTROL/BALANCE (OT/SIXTO) OT/SIXTO TO MONITOR AND EDUCATE ON OXYGEN SATURATION DURING ADLS/IADLS, NOTIFY PHYSICIAN AND/OR THE RN CLINICAL AIR TWISTER WINDER FOR PHYSICIAN NOTIFICATION AND IF O2 SATS BELOW 90% AFTER 10 MIN OF REST. OT/SIXTO MAY EDUCATE ON PAIN MANAGEMENT CLINICALLY INDICATED, INCLUDING NON-PHARMACOLOGICAL PAIN REDUCTION TECHNIQUES OT / IRRIGATIONIST DESIGNER TO IDENTIFY FALL RISK FACTORS; EDUCATE THE PATIENT/CAREGIVER ON WAYS TO REDUCE FALL RISK FACTORS AND ESTABLISH HOME EXERCISE PROGRAM TO MINIMIZE FALL RISK. MAY TEACH THE PATIENT FLOOR RECOVERY WHEN CLINICALLY APPROPRIATE. OT/SIXTO TO TEACH HIP REPLACEMENT ( HEMIARTHROPLASTY )SELF-MANAGEMENT] Goal Patient Goal - STAY HEALTHY Goal Provider Goal - A PLAN OF CARE WILL BE ESTABLISHED THAT MEETS THE PATIENT S NEEDS. PATIENT WILL DEMONSTRATE OXYGEN SATURATION WITHIN NORMAL LIMITS OR PATIENT S OPTIMAL LEVEL ESTABLISHED BY THE PHYSICIAN THROUGHOUT CARE. CHANGES TO CO-MORBID CONDITIONS AND ANY NEW CONDITIONS WILL BE IDENTIFIED AND REPORTED TO THE PHYSICIAN. Goal Provider Goal - PATIENT/CAREGIVER WILL VERBALIZE UNDERSTANDING OF SIGNS AND SYMPTOMS THAT PUT THE PATIENT AT RISK FOR HOSPITALIZATION /EMERGENCY ROOM VISITS, WHEN TO NOTIFY NURSE/PHYSICIAN OF COMPLICATIONS/DECLINE AND WHEN TO CALL 911. Goal Provider Goal - PATIENT/CAREGIVER TO VERBALIZE, AND CONSISTENTLY DEMONSTRATE EFFECTIVE, SAFE MANAGEMENT OF MEDICATION INCLUDING KNOWLEDGE OF EFFECTIVENESS, POTENTIAL SIDE EFFECTS AND DRUG REACTIONS AND WHEN TO CONTACT THE APPROPRIATE CARE PROVIDER. PATIENT/CAREGIVER WILL BE ABLE TO VERBALIZE UNDERSTANDING OF MEDICATION REGIMEN AND ACCURATELY TAKE MEDICATIONS PRESCRIBED WITHOUT ADVERSE EFFECTS BY END OF CERT Goal Provider Goal - PATIENT / CAREGIVER WILL VERBALIZE/DEMONSTRATE UNDERSTANDING OF MEASURES TO MANAGE ALTERED CARDIOVASCULAR STATUS BY END OF EPISODE. Goal Provider Goal - PATIENT/CAREGIVER WILL DEMONSTRATE UNDERSTANDING OF MEASURES FOR SELF-MANAGEMENT OF A FEMUR FRACTURE OR A POST SURGICAL HIP REPLACEMENT. Goal Provider Goal - PATIENT / CAREGIVER WILL VERBALIZE / DEMONSTRATE UNDERSTANDING OF PAIN CONTROL MEASURES BY END OF EPISODE. Goal Provider Goal - FAMILY / CAREGIVERS WILL VERBALIZE/DEMONSTRATE DEMENTIA MANAGEMENT TECHNIQUES BY END OF EPISODE. Goal Provider Goal - PATIENT/CAREGIVER WILL VERBALIZE/DEMONSTRATE UNDERSTANDING OF FALL RISK FACTORS AND IMPLEMENT STRATEGIES TO MINIMIZE FALL RISK. PATIENT/CAREGIVER WILL VERBALIZE/DEMONSTRATE AN ABILITY TO ADHERE TO FALL REDUCTION SELF-MANAGEMENT AND LIFE-STYLE CHANGES BY CERT PERIOD Goal Provider Goal - PATIENT WILL IMPROVE HOUSEHOLD GAIT FROM CGA TO INDEPENDENT IN 8 WEEKS TO PROMOTE IMPROVED FUNCTIONAL MOBILITY IN CHCF PATIENT WILL IMPROVE TUG AND FIVE TIMES SIT TO STAND FROM 25 AND 30 SECONDS TO 20 SECONDS IN 8 WEEKS TO PROMOTE IMPROVED BALANCE INPUT INTEGRATION PATIENT WILL DEMO INDEP PERFORMANCE OF STANDING THEREX AND BALANCE ACTIVITY IN 4 WEEKS TO PROMOTE LE STABILITY AND ACTIVITY TOLERANCE PATIENT WILL IMPROVE HOUSEHOLD TRANSFERS FROM CGA TO INDEPENDENT IN 4 WEEKS TO PROMOTE IMPROVED FUNCTIONAL MOBILITY PT GOAL: PATIENT WILL DEMONSTRATE OPTIMAL OUTCOMES INCLUDING INCREASED STRENGTH AND MOBILITY WITH NO COMPLICATIONS FOLLOWING FEMUR FRACTURE/ORIF BY END OF EPISODE. PT LTG: PATIENT/CAREGIVER WILL DEMONSTRATE ADHERENCE TO FALL REDUCTION SELF-MANAGEMENT AND REDUCING FALL RISK FACTORS TO MINIMIZE FALL RISK BY END OF EPISODE PT LTG: PATIENT WILL BE INDEPENDENT WITH IMPLEMENTATION OF HEP WITHIN 4 WEEKS PT LTG: CAREGIVER WILL BE INDEPENDENT ASSISTING PATIENT TO COMPLETE HEP WITHIN 4 WEEKS PT LTG: PATIENT WILL MAINTAIN OXYGEN SATURATION WITHIN PHYSICIAN ORDERED PARAMETERS THROUGHOUT EPISODE OF CARE. PT GOAL: PATIENT WILL DEMONSTRATE UNDERSTANDING OF PAIN MANAGEMENT TECHNIQUES BY END OF EPISODE. Goal Provider Goal - OTLTG :PATIENT WILL BE ABLE TO PERFORM GROOMING FROM STANDBY ASSISTANCE TO MODIFIED INDEPENDENCE WITH SAFE TECHNIQUE AND BATHROOM WITHIN 3 WEEKS OT LTG: PATIENT WILL DEMONSTRATE IMPROVED ABILITY TO PERFORM BATHING/SHOWERING AND REDUCE CAREGIVER BURDEN FROM MINIMAL ASSISTANCE TO MODIFIED INDEPENDENCE WITHIN 5 WEEKS OT LTG: PATIENT WILL DEMONSTRATE IMPROVED ABILITY TO PERFORM LOWER BODY DRESSING TO REDUCE CAREGIVER BURDEN FROM MINIMAL ASSISTANCE TO MODIFIED INDEPENDENCE WITHIN 4 WEEKS . OT LTG: PATIENT WILL DEMONSTRATE IMPROVEMENT IN MODIFIED TRAVIS INDEX SCORE FROM 78/100 TO 88/100 INDICATING DECREASED DEPENDENCY ON CAREGIVER ASSISTANCE WITH ACTIVITIES OF DAILY LIVING WITHIN 5 WEEKS. OT LTG: PATIENT WILL DEMONSTRATE IMPROVED POSTURAL CONTROL AND DECREASED FALL RISK EVIDENCED BY AN IMPROVEMENT IN FUNCTIONAL REACH SCORE FROM 8 TO 12 WITHIN 5 WEEKS IN ORDER TO SAFELY PERFORM ADL SKILLS AND GATHERING OF ITEMS. OT LTG: PATIENT WILL MAINTAIN OXYGEN SATURATION WITHIN PHYSICIAN ORDERED PARAMETERS THROUGHOUT THE EPISODE OF CARE. OT LTG: PATIENT WILL DEMONSTRATE UNDERSTANDING OF PAIN MANAGEMENT TECHNIQUES EVIDENCED BY REDUCED PAIN LEFT HIP AREA OT LTG: PATIENT/CAREGIVER WILL BE ABLE TO IMPLEMENT RECOMMENDATIONS SPECIFIC TO FALL REDUCTION FOR IMPROVED ADL/IADL COMPLETION AND HOME SAFETY BY END OF EPISODE. OT GOAL: PATIENT/CAREGIVER WILL INCORPORATE HIP REPLACEMENT(HEMIARTHROPLASTY ) PATIENT EMPOWERMENT STRATEGIES INTO DAILY ROUTINE BY END OF EPISODE. Progress Notes Progress Notes <paragraph>[Visit Date: 2024 by JALEESA BUITRAGO RN]:</paragraph><paragraph>SNV FOR DC FROM NURSING WITH GOALS MET. PTS SPOUSE PRESENT DURING SNV, BOTH FORGETFUL OFTEN REPEATING THEMSELEVES. PT DENIES ANY PAIN OR DISCOMFORT. PTS SKIN IS INTACT, NO EDEMA PRESENT. BRITTANIE MANAGES ALL PTS MEDICATIONS. SN INSTRUCTED ON DISEASE PROCESSES, S/S OF DISEASE EXACERBATION TO REPORT TO PHYSICIAN, EMERGENCY PRECAUTIONS AND WHEN TO CALL 911 AND MEASURES FOR MEETING PERSONAL CARE NEEDS. PT HOMEBOUND DUE TO REQUIRES ASSISTANCE OF ANOTHER PERSON TO LEAVE HOME, REQUIRES ASSITIVE DEVICE TO LEAVE HOME AND LEAVING HOME REQUIRES SIGNIFICANT TAXING EFFORT. 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
== END 2025-01-12 14:21 | disposition home or self-care (01) ==
LOC: HO.HOS 12:57
PROVIDERS: PCP Internal Medicine; Visit Provider Physician Assistant
DX: Z96.642 Presence of left artificial hip joint (principal)
CPT/HCPCS: 99024